=== PATIENT | male | born 1960 | race African-American/Black ===

== ENCOUNTER 2016-12-22 17:06 | Emergency (ER) | payer OTHER ==
[~2016-12-22] VITALS: Ht 177.8 cm; Wt 80.0 kg
[~2016-12-22 17:06] MED LIST: Folic Acid PO; KEPP500 PO; Multivitamins,Ther W-Minerals PO; PHEN100C4 PO; RISP0.5T PO
[2016-12-23 06:00] VITALS: BP 100/50
== END 2016-12-23 07:00 | disposition home or self-care (01) ==
LOC: ER 17:15
DX: F10.120 Alcohol abuse with intoxication, uncomplicated (principal); R56.9 Unspecified convulsions; Z79.899 Other long term (current) drug therapy
CPT/HCPCS: 99283; Z7610

== ENCOUNTER 2017-01-08 13:34 | Emergency (ER) | payer OTHER ==
[~2017-01-08] VITALS: Ht 195.6 cm; Wt 95.0 kg
[2017-01-08] MEDS ORDERED: ACETAMINOPHEN 500MG TABLET PO ONE (14:45)
[2017-01-08] MEDS ORDERED: PHENYTOIN SODIUM EXTENDED 100MG CAPSULE PO ONE (16:00)
[2017-01-08 20:31] VITALS: BP 120/77
== END 2017-01-08 20:34 | disposition home or self-care (01) ==
LOC: ER 14:34
DX: M79.671 Pain in right foot (principal); G40.909 Epilepsy, unspecified, not intractable, without status epilepticus
CPT/HCPCS: 36415; 73630; 80185; 99285

== ENCOUNTER 2017-01-17 16:57 | Emergency (ER) | payer OTHER ==
[~2017-01-17] VITALS: Ht 180.3 cm; Wt 90.0 kg
[2017-01-17] MEDS ORDERED: FOLIC ACID 1 MG, THIAMINE HCL 100 MG, MVI, ADULT NO.1 10 ML in DEXTROSE 5% WATER 1,000 ML IV ONE ×4 (18:15)
[2017-01-17 20:00] LABS: BASOPHILS % 1.2 % (0.0-2.0); DIFFERENTIAL COMMENT 0; EOSINOPHILS % 1.5 % (0.0-5.0); HEMATOCRIT. 35.1 % (42.0-52.0); HEMOGLOBIN. 12.1 g/dL (14.0-18.0); LYMPHOCYTES % 49.9 % (20.0-50.0); MEAN CORPUSCULAR HEMOGLOBIN 34.5 pg (28.0-32.0); MEAN CORPUSCULAR HGB CONC 34.3 g/dL (31.0-37.0); MEAN CORPUSCULAR VOLUME 100.5 fL (80.0-94.0); MEAN PLATELET VOLUME 7.3 fl (7.4-10.4); MONOCYTES % 5.7 % (2.0-8.0); NEUTROPHILS % 41.7 % (40.0-76.0); PLATELET 243 x1000/uL (130-400); RED CELL DISTRIBUTION WIDTH 14.9 % (11.6-14.6); WHITE BLOOD COUNT 3.2 x1000/uL (4.5-11.0)
[2017-01-17] MEDS ORDERED: FOLIC ACID 1 MG, THIAMINE HCL 100 MG, MVI, ADULT NO.1 10 ML in DEXTROSE 5% WATER 1,000 ML IV NR ×4 (20:00)
[2017-01-17 20:02] LABS: CHLORIDE 105 mEq/L (98-107); INDEX HEMOLYSI 1 (1-3); INDEX ICTERIC 1 (1-4); INDEX LIPEMIC 1 (1-3)
[2017-01-17 20:11] LABS: ALANINE AMINOTRANSFERASE 18 IU/L (13-61); ALBUMIN 3.7 g/dL (3.4-5.0); ANION GAP 16; CALCIUM 8.6 mg/dL (8.5-10.1); CARBON DIOXIDE 23 mEq/L (21-32); ETHANOL BLOOD 255 mg/dL; UREA NITROGEN BLOOD 9 mg/dL (7-21); eGFR > 60 mL/min (>60)
[2017-01-17 21:11] LABS: *AMPHETAMINES SCREEN URINE NEGATIVE (NEGATIVE); *BARBITURATES SCREEN URINE NEGATIVE (NEGATIVE); *BENZODIAZEPINES SCREEN URINE NEGATIVE (NEGATIVE); *COCAINE SCREEN URINE PRESUMTIVE POSITIVE (NEGATIVE); CANNABINOID URINE SCREEN NEGATIVE (NEGATIVE); ECSTASY MDMA SCREEN URINE NEGATIVE (NEGATIVE); METHADONE URINE SCREEN NEGATIVE (NEGATIVE); OPIATES URINE SCREEN NEGATIVE (NEGATIVE); PHENCYCLIDINE URINE SCREEN NEGATIVE (NEGATIVE)
[2017-01-18] MEDS ORDERED: LORAZEPAM 2MG/ML CPJ IV STA (06:15)
[2017-01-18] MEDS ORDERED: SODIUM CHLORIDE 0.9% 1,000 ML IV ONE (06:15)
[2017-01-18 06:51] LABS: BASOPHILS % 1.3 % (0.0-2.0); DIFFERENTIAL COMMENT 0; EOSINOPHILS % 1.5 % (0.0-5.0); HEMATOCRIT. 36.9 % (42.0-52.0); HEMOGLOBIN. 12.4 g/dL (14.0-18.0); LYMPHOCYTES % 35.1 % (20.0-50.0); MEAN CORPUSCULAR HEMOGLOBIN 34.2 pg (28.0-32.0); MEAN CORPUSCULAR HGB CONC 33.8 g/dL (31.0-37.0); MEAN CORPUSCULAR VOLUME 101.3 fL (80.0-94.0); MEAN PLATELET VOLUME 7.4 fl (7.4-10.4); NEUTROPHILS % 55.1 % (40.0-76.0); PLATELET 237 x1000/uL (130-400); RED BLOOD CELL COUNT 3.64 mill/uL (4.7-6.1); RED CELL DISTRIBUTION WIDTH 15.3 % (11.6-14.6); WHITE BLOOD COUNT 2.7 x1000/uL (4.5-11.0)
[2017-01-18 07:02] LABS: PROTHROMBIN TIME 10.6 sec
[2017-01-18 07:03] LABS: AMMONIA 34 uMol/L (<32); INDEX HEMOLYSI 1 (1-3)
[2017-01-18 07:06] LABS: ACETAMINOPHEN < 2 ug/mL (10-30); ALANINE AMINOTRANSFERASE 15 IU/L (13-61); ALBUMIN 3.8 g/dL (3.4-5.0); ANION GAP 14; CALCIUM 8.9 mg/dL (8.5-10.1); CARBON DIOXIDE 25 mEq/L (21-32); CHLORIDE 105 mEq/L (98-107); ETHANOL BLOOD < 10 mg/dL; INDEX HEMOLYSI 1 (1-3); INDEX ICTERIC 1 (1-4); INDEX LIPEMIC 1 (1-3); NT PRO B-TYPE NATRIURETIC PEP 34 pg/mL (5-125); TROPONIN I < 0.02 ng/mL (0.00-0.04); UREA NITROGEN BLOOD 7 mg/dL (7-21); eGFR > 60 mL/min (>60)
[2017-01-18 13:54] VITALS: BP 125/74
== END 2017-01-18 13:58 | disposition home or self-care (01) ==
LOC: ER 16:57
DX: F10.239 Alcohol dependence with withdrawal, unspecified (principal); Z79.899 Other long term (current) drug therapy; Y90.8 Blood alcohol level of 240 mg/100 ml or more
CPT/HCPCS: 36415; 70450; 71010; 80053; 80305; 80307; 80329; 82140; 83880; 84484; 85025; 85610; 93005; 96361; 96365; 96366; 96375; 99285; G0482; J2060; J3411; J3490; J7030; J7070; Z7610

== ENCOUNTER 2017-01-21 12:55 | Emergency (ER) | payer OTHER ==
[~2017-01-21] VITALS: Ht 195.6 cm; Wt 95.0 kg
[2017-01-21 13:00] VITALS: BP 101/58
== END 2017-01-21 17:24 | disposition left against medical advice (07) ==
LOC: ER 13:02
DX: Z53.21 Procedure and treatment not carried out due to patient leaving prior to being seen by health care provider (principal)

== ENCOUNTER 2017-01-22 20:14 | Emergency (ER) | payer OTHER ==
[~2017-01-22] VITALS: Ht 185.4 cm; Wt 86.0 kg
[2017-01-22 22:38] LABS: BASOPHILS % 0.8 % (0.0-2.0); DIFFERENTIAL COMMENT 0; HEMATOCRIT. 34.1 % (42.0-52.0); HEMOGLOBIN. 11.5 g/dL (14.0-18.0); LYMPHOCYTES % 26.9 % (20.0-50.0); MEAN CORPUSCULAR HEMOGLOBIN 34.1 pg (28.0-32.0); MEAN CORPUSCULAR HGB CONC 33.7 g/dL (31.0-37.0); MEAN CORPUSCULAR VOLUME 101.4 fL (80.0-94.0); MEAN PLATELET VOLUME 8.4 fl (7.4-10.4); MONOCYTES % 13.3 % (2.0-8.0); PLATELET 206 x1000/uL (130-400); RED BLOOD CELL COUNT 3.36 mill/uL (4.7-6.1); WHITE BLOOD COUNT 4.9 x1000/uL (4.5-11.0)
[2017-01-22 22:58] LABS: ALANINE AMINOTRANSFERASE 16 IU/L (13-61); ALBUMIN 3.8 g/dL (3.4-5.0); ANION GAP 15; CALCIUM 8.7 mg/dL (8.5-10.1); CARBON DIOXIDE 24 mEq/L (21-32); CHLORIDE 104 mEq/L (98-107); ETHANOL BLOOD 80 mg/dL; INDEX HEMOLYSI 2 (1-3); INDEX ICTERIC 1 (1-4); INDEX LIPEMIC 1 (1-3); UREA NITROGEN BLOOD 11 mg/dL (7-21); eGFR > 60 mL/min (>60)
[2017-01-22 23:00] LABS: PHENYTOIN < 0.4 ug/mL (10-20)
[2017-01-22] MEDS ORDERED: PHENYTOIN SODIUM 1,000 MG in SODIUM CHLORIDE 0.9% 100 ML IV ONE (23:30)
[2017-01-23] MEDS ORDERED: PHENYTOIN 100 MG/4 ML UDC NG ONE ×2 (02:00→02:15)
[2017-01-23 03:45] VITALS: BP 104/79
== END 2017-01-23 04:36 | disposition home or self-care (01) ==
LOC: ER 20:14
DX: F10.129 Alcohol abuse with intoxication, unspecified (principal); G40.909 Epilepsy, unspecified, not intractable, without status epilepticus; Y90.4 Blood alcohol level of 80-99 mg/100 ml; Z91.14 Patient's other noncompliance with medication regimen
CPT/HCPCS: 36415; 80053; 80185; 85025; 99284; C1893; G0482; Z7610; J1165; J7050

== ENCOUNTER 2017-02-19 10:51 | Emergency (ER) | payer OTHER ==
[~2017-02-19] VITALS: Ht 182.9 cm; Wt 85.0 kg
[2017-02-19] MEDS ORDERED: PHENYTOIN SODIUM EXTENDED 100MG CAPSULE PO ONE (13:30)
[2017-02-19] MEDS ORDERED: LEVETIRACETAM 500MG TABLET PO ONE (13:30)
[2017-02-19 14:55] LABS: BASOPHILS % 0.9 % (0.0-2.0); DIFFERENTIAL COMMENT 0; EOSINOPHILS % 0.6 % (0.0-5.0); HEMOGLOBIN. 13.5 g/dL (14.0-18.0); LYMPHOCYTES % 24.2 % (20.0-50.0); MEAN CORPUSCULAR HEMOGLOBIN 34.3 pg (28.0-32.0); MEAN CORPUSCULAR HGB CONC 33.8 g/dL (31.0-37.0); MEAN CORPUSCULAR VOLUME 101.4 fL (80.0-94.0); MEAN PLATELET VOLUME 8.2 fl (7.4-10.4); MONOCYTES % 10.6 % (2.0-8.0); NEUTROPHILS % 63.7 % (40.0-76.0); PLATELET 209 x1000/uL (130-400); RED BLOOD CELL COUNT 3.95 mill/uL (4.7-6.1); RED CELL DISTRIBUTION WIDTH 14.3 % (11.6-14.6); WHITE BLOOD COUNT 4.5 x1000/uL (4.5-11.0)
[2017-02-19 15:02] LABS: CHLORIDE 103 mEq/L (98-107); INDEX HEMOLYSI 1 (1-3); INDEX ICTERIC 1 (1-4); INDEX LIPEMIC 1 (1-3)
[2017-02-19 15:07] LABS: ALBUMIN 3.8 g/dL (3.4-5.0); ANION GAP 12; CALCIUM 9.5 mg/dL (8.5-10.1); CARBON DIOXIDE 26 mEq/L (21-32); ETHANOL BLOOD < 10 mg/dL; UREA NITROGEN BLOOD 7 mg/dL (7-21)
[2017-02-19 15:10] LABS: ALANINE AMINOTRANSFERASE 19 IU/L (13-61); eGFR > 60 mL/min (>60)
[2017-02-19 15:23] LABS: PHENYTOIN < 0.4 ug/mL (10-20)
[2017-02-19 17:45] VITALS: BP 140/68
== END 2017-02-19 18:31 | disposition home or self-care (01) ==
LOC: ER 12:41
DX: G40.909 Epilepsy, unspecified, not intractable, without status epilepticus (principal); F17.210 Nicotine dependence, cigarettes, uncomplicated; F10.21 Alcohol dependence, in remission; Z91.14 Patient's other noncompliance with medication regimen
CPT/HCPCS: 36415; 80053; 80185; 85025; 99284; G0482

== ENCOUNTER 2017-03-11 17:50 | Emergency (ER) | payer OTHER ==
[~2017-03-11] VITALS: Ht 188 cm; Wt 95.5 kg
[2017-03-11] MEDS ORDERED: SODIUM CHLORIDE 0.9% 1,000 ML IV ONE (18:07)
[2017-03-11 19:13] LABS: CARBON DIOXIDE 25 mEq/L (21-32); CHLORIDE 101 mEq/L (98-107); ETHANOL BLOOD 184 mg/dL
[2017-03-11 19:15] LABS: PHENYTOIN 0.4 ug/mL (10-20)
[2017-03-11] MEDS ORDERED: PHENYTOIN SODIUM 1,000 MG in SODIUM CHLORIDE 0.9% 100 ML IV ONE (19:30)
[2017-03-11 19:56] LABS: *AMPHETAMINES SCREEN URINE NEGATIVE (NEGATIVE); *BARBITURATES SCREEN URINE NEGATIVE (NEGATIVE); *BENZODIAZEPINES SCREEN URINE NEGATIVE (NEGATIVE); *COCAINE SCREEN URINE PRESUMTIVE POSITIVE (NEGATIVE); CANNABINOID URINE SCREEN NEGATIVE (NEGATIVE); METHADONE URINE SCREEN NEGATIVE (NEGATIVE); OPIATES URINE SCREEN NEGATIVE (NEGATIVE); PHENCYCLIDINE URINE SCREEN NEGATIVE (NEGATIVE)
[2017-03-12 00:10] VITALS: BP 132/87
== END 2017-03-12 00:47 | disposition home or self-care (01) ==
LOC: ER 17:50
DX: F10.129 Alcohol abuse with intoxication, unspecified (principal); F14.10 Cocaine abuse, uncomplicated; R56.9 Unspecified convulsions; Z91.19 Patient's noncompliance with other medical treatment and regimen; F17.200 Nicotine dependence, unspecified, uncomplicated; R32 Unspecified urinary incontinence
CPT/HCPCS: 36415; 80048; 80185; 80305; 83735; 96365; 99284; G0482; J1165; J7030; J7040; Z7610; J7050

== ENCOUNTER 2017-04-13 18:21 | Emergency (ER) | payer OTHER ==
[~2017-04-13] VITALS: Ht 172.7 cm; Wt 72.0 kg
[2017-04-13] MEDS ORDERED: LEVETIRACETAM 1,000 MG in SODIUM CHLORIDE 0.9% 100 ML IV ONE (19:30)
[2017-04-13 20:09] LABS: BASOPHILS % 0.8 % (0.0-2.0); EOSINOPHILS % 1.3 % (0.0-5.0); HEMATOCRIT. 34.1 % (42.0-52.0); HEMOGLOBIN. 12.1 g/dL (14.0-18.0); LYMPHOCYTES % 51.1 % (20.0-50.0); MEAN CORPUSCULAR HEMOGLOBIN 35.2 pg (28.0-32.0); MEAN CORPUSCULAR VOLUME 99.8 fL (80.0-94.0); MEAN PLATELET VOLUME 7.7 fl (7.4-10.4); NEUTROPHILS % 39.8 % (40.0-76.0); PLATELET 217 x1000/uL (130-400); RED BLOOD CELL COUNT 3.42 mill/uL (4.7-6.1); RED CELL DISTRIBUTION WIDTH 13.4 % (11.6-14.6)
[2017-04-13 20:11] LABS: CHLORIDE 104 mEq/L (98-107)
[2017-04-13 20:20] LABS: CARBON DIOXIDE 21 mEq/L (21-32); ETHANOL BLOOD 236 mg/dL
[2017-04-14 06:48] VITALS: BP 113/65
== END 2017-04-14 06:49 | disposition home or self-care (01) ==
LOC: ER 18:38
DX: F10.129 Alcohol abuse with intoxication, unspecified (principal); R56.9 Unspecified convulsions
CPT/HCPCS: 36415; 80053; 85025; 96365; 99284; G0482; J1953; J7030; J7050

== ENCOUNTER 2017-05-10 16:02 | Emergency (ER) | payer OTHER ==
[~2017-05-10] VITALS: Ht 185.4 cm; Wt 90.0 kg
[2017-05-10 16:07] VITALS: BP 107/63
== END 2017-05-11 00:20 | disposition left against medical advice (07) ==
LOC: ER 16:09
DX: F10.10 Alcohol abuse, uncomplicated (principal); Z53.21 Procedure and treatment not carried out due to patient leaving prior to being seen by health care provider

== ENCOUNTER 2017-05-11 13:34 | Emergency (ER) | payer OTHER ==
[~2017-05-11] VITALS: Ht 195.6 cm; Wt 93.0 kg
[2017-05-11] MEDS ORDERED: FOLIC ACID 1 MG, THIAMINE HCL 100 MG, MVI, ADULT NO.1 10 ML in DEXTROSE 5% WATER 1,000 ML IV ONE ×4 (14:45)
[2017-05-11 15:22] LABS: BASOPHILS % 0.8 % (0.0-2.0); EOSINOPHILS % 0.8 % (0.0-5.0); HEMATOCRIT. 37.1 % (42.0-52.0); HEMOGLOBIN. 12.4 g/dL (14.0-18.0); LYMPHOCYTES % 53.1 % (20.0-50.0); MEAN CORPUSCULAR HEMOGLOBIN 33.7 pg (28.0-32.0); MEAN CORPUSCULAR VOLUME 100.9 fL (80.0-94.0); MEAN PLATELET VOLUME 8.2 fl (7.4-10.4); NEUTROPHILS % 37.3 % (40.0-76.0); PLATELET 192 x1000/uL (130-400); RED BLOOD CELL COUNT 3.67 mill/uL (4.7-6.1); RED CELL DISTRIBUTION WIDTH 14.1 % (11.6-14.6)
[2017-05-11 15:33] LABS: CARBON DIOXIDE 25 mEq/L (21-32); CHLORIDE 103 mEq/L (98-107); ETHANOL BLOOD 285 mg/dL
[2017-05-11 16:19] LABS: CLARITY URINE CLEAR (CLEAR); COLOR URINE YELLOW (YELLOW); GLUCOSE URINE NEGATIVE (NEGATIVE); KETONES URINE NEGATIVE (NEGATIVE); LEUKOCYTE ESTERASE URINE 2+ (NEGATIVE); NITRITE URINE POSITIVE (NEGATIVE); OCCULT BLOOD URINE NEGATIVE (NEGATIVE); PROTEIN URINE NEGATIVE (NEGATIVE); SPECIFIC GRAVITY URINE 1.006 (1.005-1.030); UROBILINOGEN URINE 0.2 E.U./dL (0.2-1.0)
[2017-05-11 16:38] LABS: *AMPHETAMINES SCREEN URINE NEGATIVE (NEGATIVE); *BARBITURATES SCREEN URINE NEGATIVE (NEGATIVE); *BENZODIAZEPINES SCREEN URINE NEGATIVE (NEGATIVE); *COCAINE SCREEN URINE PRESUMTIVE POSITIVE (NEGATIVE); CANNABINOID URINE SCREEN NEGATIVE (NEGATIVE); METHADONE URINE SCREEN NEGATIVE (NEGATIVE); OPIATES URINE SCREEN NEGATIVE (NEGATIVE); PHENCYCLIDINE URINE SCREEN PRESUMTIVE POSITIVE (NEGATIVE)
[2017-05-11] MEDS ORDERED: CEFTRIAXONE 1 G PREMIX 50 ML IV SCH (18:45)
[2017-05-12 02:58] VITALS: BP 104/62
== END 2017-05-12 03:01 | disposition home or self-care (01) ==
LOC: ER 13:50
DX: T51.0X1A Toxic effect of ethanol, accidental (unintentional), initial encounter (principal); T40.991A Poisoning by other psychodysleptics [hallucinogens], accidental (unintentional), initial encounter; N39.0 Urinary tract infection, site not specified; T40.5X1A Poisoning by cocaine, accidental (unintentional), initial encounter; G92 Toxic encephalopathy; Y92.488 Other paved roadways as the place of occurrence of the external cause; G40.909 Epilepsy, unspecified, not intractable, without status epilepticus
CPT/HCPCS: 36415; 80053; 80305; 80307; 80329; 81001; 85025; 96365; 96366; 99285; G0482; J3411; J3490; J7070

== ENCOUNTER 2017-06-01 13:39 | Emergency (ER) | payer OTHER ==
[~2017-06-01] VITALS: Ht 182.9 cm; Wt 80.0 kg
[~2017-06-01 13:39] MED LIST changes: -RISP0.5T PO; +RISP05 PO
[2017-06-01] MEDS ORDERED: SODIUM CHLORIDE 0.9% 1,000 ML IV ONE (13:58)
[2017-06-01 14:36] LABS: CLARITY URINE CLEAR (CLEAR); COLOR URINE YELLOW (YELLOW); GLUCOSE URINE NEGATIVE (NEGATIVE); KETONES URINE NEGATIVE (NEGATIVE); LEUKOCYTE ESTERASE URINE 2+ (NEGATIVE); NITRITE URINE NEGATIVE (NEGATIVE); OCCULT BLOOD URINE NEGATIVE (NEGATIVE); PROTEIN URINE NEGATIVE (NEGATIVE); SPECIFIC GRAVITY URINE 1.007 (1.005-1.030); UROBILINOGEN URINE 0.2 E.U./dL (0.2-1.0)
[2017-06-01 15:10] LABS: CHLORIDE 107 mEq/L (98-107); PROTHROMBIN TIME 10.5 sec (9.4-11.6)
[2017-06-01 15:13] LABS: CARBON DIOXIDE 25 mEq/L (21-32)
[2017-06-01 15:18] LABS: BASOPHILS % 1.2 % (0.0-2.0); EOSINOPHILS % 0.6 % (0.0-5.0); HEMATOCRIT. 35.8 % (42.0-52.0); LYMPHOCYTES % 57.6 % (20.0-50.0); MEAN CORPUSCULAR VOLUME 101.2 fL (80.0-94.0); MONOCYTES % 5.7 % (2.0-8.0); NEUTROPHILS % 34.9 % (40.0-76.0); PLATELET 242 x1000/uL (130-400); RED BLOOD CELL COUNT 3.53 mill/uL (4.7-6.1)
[2017-06-01] MEDS ORDERED: CEPHALEXIN 500MG CAPSULE PO ONE (16:45)
[2017-06-01] MEDS ORDERED: LEVETIRACETAM 500MG TABLET PO ONE (16:45)
[2017-06-01] MEDS ORDERED: PHENYTOIN SODIUM EXTENDED 100MG CAPSULE PO ONE (16:45)
[2017-06-02 02:32] VITALS: BP 115/62
== END 2017-06-02 03:04 | disposition home or self-care (01) ==
LOC: ER 13:53
DX: F10.129 Alcohol abuse with intoxication, unspecified (principal); G40.909 Epilepsy, unspecified, not intractable, without status epilepticus; Y90.9 Presence of alcohol in blood, level not specified
CPT/HCPCS: 36415; 80053; 80185; 81001; 83605; 85025; 85610; 99284; Z7610; J7030; A4315

== ENCOUNTER 2017-06-05 14:54 | Emergency (ER) | payer OTHER ==
[~2017-06-05] VITALS: Ht 180.3 cm; Wt 80.0 kg
[2017-06-05 16:22] LABS: BASOPHILS % 1.2 % (0.0-2.0); EOSINOPHILS % 0.5 % (0.0-5.0); HEMOGLOBIN. 11.8 g/dL (14.0-18.0); MEAN CORPUSCULAR VOLUME 100.7 fL (80.0-94.0); MEAN PLATELET VOLUME 8.1 fl (7.4-10.4); MONOCYTES % 10.2 % (2.0-8.0); NEUTROPHILS % 40.1 % (40.0-76.0); PLATELET 224 x1000/uL (130-400); RED BLOOD CELL COUNT 3.48 mill/uL (4.7-6.1); RED CELL DISTRIBUTION WIDTH 14.5 % (11.6-14.6)
[2017-06-05 16:32] LABS: CARBON DIOXIDE 21 mEq/L (21-32); CHLORIDE 106 mEq/L (98-107); ETHANOL BLOOD 251 mg/dL
[2017-06-05 16:40] LABS: CLARITY URINE CLEAR (CLEAR); COLOR URINE YELLOW (YELLOW); GLUCOSE URINE NEGATIVE (NEGATIVE); KETONES URINE NEGATIVE (NEGATIVE); LEUKOCYTE ESTERASE URINE 2+ (NEGATIVE); NITRITE URINE POSITIVE (NEGATIVE); OCCULT BLOOD URINE NEGATIVE (NEGATIVE); PROTEIN URINE NEGATIVE (NEGATIVE); SPECIFIC GRAVITY URINE 1.008 (1.005-1.030); UROBILINOGEN URINE 0.2 E.U./dL (0.2-1.0)
[2017-06-05 16:50] LABS: *AMPHETAMINES SCREEN URINE NEGATIVE (NEGATIVE); *BARBITURATES SCREEN URINE NEGATIVE (NEGATIVE); *BENZODIAZEPINES SCREEN URINE NEGATIVE (NEGATIVE); *COCAINE SCREEN URINE NEGATIVE (NEGATIVE); CANNABINOID URINE SCREEN NEGATIVE (NEGATIVE); METHADONE URINE SCREEN NEGATIVE (NEGATIVE); OPIATES URINE SCREEN NEGATIVE (NEGATIVE); PHENCYCLIDINE URINE SCREEN NEGATIVE (NEGATIVE)
[2017-06-05] MEDS ORDERED: PHENYTOIN SODIUM EXTENDED 100MG CAPSULE PO NR (17:15)
[2017-06-05] MEDS ORDERED: CEFTRIAXONE 1 G PREMIX 50 ML IV ONE (19:00)
[2017-06-05] MEDS ORDERED: CEFTRIAXONE SODIUM 1 G/VIAL IM ONE (19:45)
[2017-06-05 20:37] VITALS: BP 104/68
== END 2017-06-05 20:39 | disposition home or self-care (01) ==
LOC: ER 14:56
DX: F10.129 Alcohol abuse with intoxication, unspecified (principal); N39.0 Urinary tract infection, site not specified; R56.9 Unspecified convulsions
CPT/HCPCS: 36415; 80053; 80185; 80305; 81001; 85025; 96372; 99284; G0482; J0696; Z7610

== ENCOUNTER 2017-07-17 15:32 | Emergency (ER) | payer OTHER ==
[~2017-07-17] VITALS: Ht 182.9 cm; Wt 90.0 kg
[2017-07-17 15:36] VITALS: BP 112/82
== END 2017-07-17 19:15 | disposition left against medical advice (07) ==
LOC: ER 15:32
DX: F10.120 Alcohol abuse with intoxication, uncomplicated (principal); Z53.21 Procedure and treatment not carried out due to patient leaving prior to being seen by health care provider

== ENCOUNTER 2017-07-27 18:05 | Emergency (ER) | payer OTHER ==
[~2017-07-27] VITALS: Ht 177.8 cm; Wt 79.0 kg
[2017-07-28 03:00] VITALS: BP 127/65
== END 2017-07-28 03:03 | disposition home or self-care (01) ==
LOC: ER 18:12
DX: F10.129 Alcohol abuse with intoxication, unspecified (principal); G40.909 Epilepsy, unspecified, not intractable, without status epilepticus; Y90.9 Presence of alcohol in blood, level not specified
CPT/HCPCS: 99283; Z7610

== ENCOUNTER 2017-08-06 18:48 | Emergency (ER) | payer OTHER ==
[~2017-08-06] VITALS: Ht 167.6 cm; Wt 60.0 kg
[2017-08-06 19:11] VITALS: BP 101/63
[2017-08-06 19:39] LABS: CLARITY URINE CLEAR (CLEAR); COLOR URINE YELLOW (YELLOW); GLUCOSE URINE NEGATIVE (NEGATIVE); KETONES URINE NEGATIVE (NEGATIVE); LEUKOCYTE ESTERASE URINE 2+ (NEGATIVE); NITRITE URINE NEGATIVE (NEGATIVE); OCCULT BLOOD URINE NEGATIVE (NEGATIVE); PROTEIN URINE NEGATIVE (NEGATIVE); SPECIFIC GRAVITY URINE 1.008 (1.005-1.030); UROBILINOGEN URINE 0.2 E.U./dL (0.2-1.0)
[2017-08-06 19:55] LABS: BASOPHILS % 0.8 % (0.0-2.0); EOSINOPHILS % 0.7 % (0.0-5.0); HEMATOCRIT. 35.2 % (42.0-52.0); LYMPHOCYTES % 49.3 % (20.0-50.0); MEAN CORPUSCULAR VOLUME 102.9 fL (80.0-94.0); MEAN PLATELET VOLUME 8.1 fl (7.4-10.4); MONOCYTES % 9.7 % (2.0-8.0); NEUTROPHILS % 39.5 % (40.0-76.0); PLATELET 218 x1000/uL (130-400); RED BLOOD CELL COUNT 3.42 mill/uL (4.7-6.1); RED CELL DISTRIBUTION WIDTH 14.3 % (11.6-14.6)
[2017-08-06 20:03] LABS: CHLORIDE 103 mEq/L (98-107)
[2017-08-06 20:05] LABS: CARBON DIOXIDE 28 mEq/L (21-32)
[2017-08-06 20:06] LABS: ETHANOL BLOOD 257 mg/dL
[2017-08-06 20:08] LABS: *AMPHETAMINES SCREEN URINE NEGATIVE (NEGATIVE); *BARBITURATES SCREEN URINE NEGATIVE (NEGATIVE); *BENZODIAZEPINES SCREEN URINE NEGATIVE (NEGATIVE); *COCAINE SCREEN URINE PRESUMTIVE POSITIVE (NEGATIVE); CANNABINOID URINE SCREEN NEGATIVE (NEGATIVE); METHADONE URINE SCREEN NEGATIVE (NEGATIVE); OPIATES URINE SCREEN NEGATIVE (NEGATIVE); PHENCYCLIDINE URINE SCREEN NEGATIVE (NEGATIVE)
== END 2017-08-07 00:48 | disposition home or self-care (01) ==
LOC: ER 18:57
DX: F10.129 Alcohol abuse with intoxication, unspecified (principal); F14.10 Cocaine abuse, uncomplicated
CPT/HCPCS: 36415; 70450; 71010; 80053; 80185; 80305; 81001; 85025; 87077; 87086; 87186; 99285; G0482; Z7610

== ENCOUNTER 2017-09-18 15:21 | Emergency (ER) | payer OTHER ==
[~2017-09-18] VITALS: Ht 180.3 cm; Wt 79.0 kg
[2017-09-18 19:10] LABS: BASOPHILS % 0.6 % (0.0-2.0); EOSINOPHILS % 0.7 % (0.0-5.0); HEMATOCRIT. 34.2 % (42.0-52.0); HEMOGLOBIN. 11.7 g/dL (14.0-18.0); LYMPHOCYTES % 27.9 % (20.0-50.0); MEAN CORPUSCULAR HEMOGLOBIN 35.1 pg (28.0-32.0); MEAN CORPUSCULAR VOLUME 102.6 fL (80.0-94.0); MEAN PLATELET VOLUME 8.1 fl (7.4-10.4); MONOCYTES % 8.3 % (2.0-8.0); NEUTROPHILS % 62.5 % (40.0-76.0); PLATELET 242 x1000/uL (130-400); RED BLOOD CELL COUNT 3.33 mill/uL (4.7-6.1); RED CELL DISTRIBUTION WIDTH 14.4 % (11.6-14.6)
[2017-09-18 19:17] LABS: CHLORIDE 105 mEq/L (98-107)
[2017-09-18 19:25] LABS: CARBON DIOXIDE 27 mEq/L (21-32); ETHANOL BLOOD < 10 mg/dL
[2017-09-18] MEDS ORDERED: PHENYTOIN SODIUM 1,000 MG in SODIUM CHLORIDE 0.9% 100 ML IV ONE (20:00)
[2017-09-18] MEDS ORDERED: PHENYTOIN SODIUM EXTENDED 100MG CAPSULE PO ONE (21:30)
[2017-09-18 21:47] VITALS: BP 112/52
== END 2017-09-18 22:10 | disposition home or self-care (01) ==
LOC: ER 15:21
DX: F10.129 Alcohol abuse with intoxication, unspecified (principal); G40.909 Epilepsy, unspecified, not intractable, without status epilepticus
CPT/HCPCS: 36415; 80053; 80185; 80307; 80329; 85025; 99284; G0482; J1165; Z7610; J7050

== ENCOUNTER 2017-11-01 14:47 | Emergency (ER) | payer OTHER ==
[~2017-11-01] VITALS: Ht 188 cm; Wt 96.0 kg
[2017-11-01] MEDS ORDERED: LEVETIRACETAM 500MG PREMIX 100 ML IV ONE (15:15)
[2017-11-01] MEDS ORDERED: IBUPROFEN 400MG TABLET PO ONE (15:30)
[2017-11-01] MEDS ORDERED: TETANUS, DIPHTHERIA, PERTUSSIS VAC/PF 0.5ML (>7YR OLD) IM ONE (15:30)
[2017-11-01 16:38] LABS: BASOPHILS % 0.8 % (0.0-2.0); HEMATOCRIT. 39.2 % (42.0-52.0); HEMOGLOBIN. 13.2 g/dL (14.0-18.0); LYMPHOCYTES % 25.3 % (20.0-50.0); MEAN CORPUSCULAR HEMOGLOBIN 34.8 pg (28.0-32.0); MEAN CORPUSCULAR VOLUME 103.2 fL (80.0-94.0); MEAN PLATELET VOLUME 8.7 fl (7.4-10.4); MONOCYTES % 11.3 % (2.0-8.0); NEUTROPHILS % 61.6 % (40.0-76.0); PLATELET 212 x1000/uL (130-400)
[2017-11-01 16:48] LABS: CHLORIDE 105 mEq/L (98-107); ETHANOL BLOOD < 10 mg/dL
[2017-11-01] MEDS ORDERED: PHENYTOIN SODIUM 1,000 MG in SODIUM CHLORIDE 0.9% 100 ML IV ONE (18:00)
[2017-11-02 01:30] VITALS: BP 103/61
== END 2017-11-02 02:30 | disposition home or self-care (01) ==
LOC: ER 14:47
DX: R56.9 Unspecified convulsions (principal); F17.200 Nicotine dependence, unspecified, uncomplicated; Z91.14 Patient's other noncompliance with medication regimen; Z79.899 Other long term (current) drug therapy
CPT/HCPCS: 36415; 73130; 73630; 80053; 80185; 85025; 90471; 90715; 96365; 96366; 96367; 99285; G0482; J1165; J1953; Z7610; J7050

== ENCOUNTER 2017-12-04 09:50 | Emergency (ER) | payer OTHER ==
[~2017-12-04] VITALS: Ht 185.4 cm; Wt 90.0 kg
[2017-12-04] MEDS ORDERED: SODIUM CHLORIDE 0.9% 1,000 ML IV ONE (10:42)
[2017-12-04 11:13] LABS: BASOPHILS % 0.5 % (0.0-2.0); EOSINOPHILS % 0.7 % (0.0-5.0); HEMATOCRIT. 39.8 % (42.0-52.0); HEMOGLOBIN. 13.8 g/dL (14.0-18.0); LYMPHOCYTES % 18.3 % (20.0-50.0); MEAN CORPUSCULAR HEMOGLOBIN 35.6 pg (28.0-32.0); MEAN CORPUSCULAR VOLUME 103.2 fL (80.0-94.0); MONOCYTES % 9.9 % (2.0-8.0); NEUTROPHILS % 70.6 % (40.0-76.0); PLATELET 200 x1000/uL (130-400); RED BLOOD CELL COUNT 3.86 mill/uL (4.7-6.1); RED CELL DISTRIBUTION WIDTH 14.9 % (11.6-14.6)
[2017-12-04 11:19] LABS: CHLORIDE 99 mEq/L (98-107)
[2017-12-04 11:24] LABS: ETHANOL BLOOD < 10 mg/dL
[2017-12-04 13:34] LABS: CLARITY URINE CLOUDY (CLEAR); COLOR URINE YELLOW (YELLOW); KETONES URINE NEGATIVE (NEGATIVE); LEUKOCYTE ESTERASE URINE 2+ (NEGATIVE); NITRITE URINE POSITIVE (NEGATIVE); OCCULT BLOOD URINE TRACE (NEGATIVE); PH URINE 5.5 (4.5-8.0); PROTEIN URINE NEGATIVE (NEGATIVE); SPECIFIC GRAVITY URINE 1.023 (1.005-1.030); UROBILINOGEN URINE 0.2 E.U./dL (0.2-1.0)
[2017-12-04] MEDS ORDERED: PHENYTOIN SODIUM 1,000 MG in SODIUM CHLORIDE 0.9% 100 ML IV ONE (13:45)
[2017-12-04] MEDS ORDERED: LEVETIRACETAM 500MG TABLET PO ONE (13:45)
[2017-12-04] MEDS ORDERED: PHENYTOIN SODIUM 1,000 MG in SODIUM CHLORIDE 0.9% 100 ML IV SCH (14:45)
[2017-12-04 14:50] LABS: *AMPHETAMINES SCREEN URINE NEGATIVE (NEGATIVE); *BARBITURATES SCREEN URINE NEGATIVE (NEGATIVE); *BENZODIAZEPINES SCREEN URINE NEGATIVE (NEGATIVE); *COCAINE SCREEN URINE PRESUMTIVE POSITIVE (NEGATIVE); CANNABINOID URINE SCREEN NEGATIVE (NEGATIVE); METHADONE URINE SCREEN NEGATIVE (NEGATIVE); OPIATES URINE SCREEN NEGATIVE (NEGATIVE); PHENCYCLIDINE URINE SCREEN NEGATIVE (NEGATIVE)
[2017-12-04] MEDS ORDERED: CEFTRIAXONE 1 G PREMIX 50 ML IV ONE (15:00)
[2017-12-04] MEDS ORDERED: DEXTROSE 50% WATER 50ML SYRINGE IV ONE (15:00)
[2017-12-04 19:57] VITALS: BP 101/51
== END 2017-12-04 20:14 | disposition home or self-care (01) ==
LOC: ER 10:25
DX: N39.0 Urinary tract infection, site not specified (principal); E16.2 Hypoglycemia, unspecified; F14.10 Cocaine abuse, uncomplicated; R89.2 Abnormal level of other drugs, medicaments and biological substances in specimens from other organs, systems and tissues; F10.229 Alcohol dependence with intoxication, unspecified
CPT/HCPCS: 36415; 70450; 71045; 80053; 80185; 80305; 81003; 82962; 83690; 85025; 85610; 87077; 87086; 87186; 96361; 96365; 96366; 96368; 96375; 99285; G0482; J0696; J1165; J7030; Z7610; J7050

== ENCOUNTER 2017-12-07 19:51 | Emergency (ER) | payer OTHER ==
[~2017-12-07] VITALS: Ht 182.9 cm; Wt 91.0 kg
[2017-12-07 21:26] LABS: BASOPHILS % 0.5 % (0.0-2.0); HEMATOCRIT. 35.7 % (42.0-52.0); HEMOGLOBIN. 12.7 g/dL (14.0-18.0); LYMPHOCYTES % 30.4 % (20.0-50.0); MEAN CORPUSCULAR HEMOGLOBIN 37.1 pg (28.0-32.0); MEAN CORPUSCULAR VOLUME 104.6 fL (80.0-94.0); MEAN PLATELET VOLUME 8.9 fl (7.4-10.4); MONOCYTES % 10.7 % (2.0-8.0); NEUTROPHILS % 57.4 % (40.0-76.0); PLATELET 181 x1000/uL (130-400); RED BLOOD CELL COUNT 3.41 mill/uL (4.7-6.1); RED CELL DISTRIBUTION WIDTH 15.4 % (11.6-14.6)
[2017-12-07 21:27] LABS: CHLORIDE 102 mEq/L (98-107)
[2017-12-07 21:33] LABS: ETHANOL BLOOD 184 mg/dL
[2017-12-07 22:18] LABS: CLARITY URINE CLEAR (CLEAR); COLOR URINE YELLOW (YELLOW); KETONES URINE TRACE (NEGATIVE); LEUKOCYTE ESTERASE URINE TRACE (NEGATIVE); NITRITE URINE NEGATIVE (NEGATIVE); OCCULT BLOOD URINE NEGATIVE (NEGATIVE); PH URINE 5.5 (4.5-8.0); PROTEIN URINE NEGATIVE (NEGATIVE); SPECIFIC GRAVITY URINE 1.016 (1.005-1.030); UROBILINOGEN URINE 0.2 E.U./dL (0.2-1.0)
[2017-12-07 22:28] LABS: *AMPHETAMINES SCREEN URINE NEGATIVE (NEGATIVE); *BARBITURATES SCREEN URINE NEGATIVE (NEGATIVE); *BENZODIAZEPINES SCREEN URINE NEGATIVE (NEGATIVE); *COCAINE SCREEN URINE PRESUMTIVE POSITIVE (NEGATIVE); CANNABINOID URINE SCREEN NEGATIVE (NEGATIVE); METHADONE URINE SCREEN NEGATIVE (NEGATIVE); OPIATES URINE SCREEN NEGATIVE (NEGATIVE); PHENCYCLIDINE URINE SCREEN NEGATIVE (NEGATIVE)
[2017-12-08 07:45] VITALS: BP 129/70
== END 2017-12-08 08:03 | disposition home or self-care (01) ==
LOC: ER 19:51
DX: G40.909 Epilepsy, unspecified, not intractable, without status epilepticus (principal); T40.5X1A Poisoning by cocaine, accidental (unintentional), initial encounter; R41.82 Altered mental status, unspecified; T51.0X1A Toxic effect of ethanol, accidental (unintentional), initial encounter; F17.200 Nicotine dependence, unspecified, uncomplicated; F10.20 Alcohol dependence, uncomplicated
CPT/HCPCS: 36415; 70450; 80053; 80185; 80305; 81003; 85025; 85610; 99285; G0482

== ENCOUNTER 2018-01-30 13:08 | Emergency (ER) | payer OTHER ==
[~2018-01-30] VITALS: Ht 180.3 cm; Wt 90.0 kg
[2018-01-30 13:09] VITALS: BP 96/52
[2018-01-30] MEDS ORDERED: SODIUM CHLORIDE 0.9% 1,000 ML IV ONE (15:02)
[2018-01-30] MEDS ORDERED: CYANOCOBALAMIN 1000MCG/ML VIAL IM ONE (15:15)
== END 2018-01-30 15:20 | disposition left against medical advice (07) ==
LOC: ER 13:13
DX: F10.129 Alcohol abuse with intoxication, unspecified (principal); R56.9 Unspecified convulsions; F14.10 Cocaine abuse, uncomplicated; Y90.9 Presence of alcohol in blood, level not specified
CPT/HCPCS: 96360; 99284; J3420; J7030

== ENCOUNTER 2018-02-06 08:40 | Emergency (ER) | payer OTHER ==
[~2018-02-06] VITALS: Ht 172.7 cm; Wt 70.0 kg
[2018-02-06] MEDS ORDERED: SODIUM CHLORIDE 0.9% 1,000 ML IV ONE (09:13)
[2018-02-06] MEDS ORDERED: LORAZEPAM 2MG/ML CPJ IV ONE (09:15)
[2018-02-06] MEDS ORDERED: LORAZEPAM 2MG/ML CPJ IM ONE (09:15)
[2018-02-06] MEDS ORDERED: HALOPERIDOL LACTATE 5MG/ML VIAL IM ONE (09:15)
[2018-02-06] MEDS ORDERED: LEVETIRACETAM 500MG PREMIX 100 ML IV ONE (09:15)
[2018-02-06 10:39] LABS: BASOPHILS % 0.8 % (0.0-2.0); EOSINOPHILS % 0.8 % (0.0-5.0); HEMATOCRIT. 41.3 % (42.0-52.0); HEMOGLOBIN. 13.8 g/dL (14.0-18.0); LYMPHOCYTES % 33.5 % (20.0-50.0); MEAN CORPUSCULAR HEMOGLOBIN 35.2 pg (28.0-32.0); MEAN CORPUSCULAR VOLUME 105.3 fL (80.0-94.0); MONOCYTES % 10.3 % (2.0-8.0); NEUTROPHILS % 54.6 % (40.0-76.0); PLATELET 249 x1000/uL (130-400); RED BLOOD CELL COUNT 3.92 mill/uL (4.7-6.1)
[2018-02-06 10:45] LABS: CHLORIDE 105 mEq/L (98-107)
[2018-02-06 10:49] LABS: ETHANOL BLOOD 19 mg/dL
[2018-02-06 10:57] LABS: *AMPHETAMINES SCREEN URINE NEGATIVE (NEGATIVE); *BARBITURATES SCREEN URINE NEGATIVE (NEGATIVE); *BENZODIAZEPINES SCREEN URINE NEGATIVE (NEGATIVE); *COCAINE SCREEN URINE PRESUMTIVE POSITIVE (NEGATIVE)
[2018-02-06 10:58] LABS: CANNABINOID URINE SCREEN PRESUMTIVE POSITIVE (NEGATIVE); METHADONE URINE SCREEN NEGATIVE (NEGATIVE); OPIATES URINE SCREEN NEGATIVE (NEGATIVE); PHENCYCLIDINE URINE SCREEN NEGATIVE (NEGATIVE)
[2018-02-06] MEDS ORDERED: LEVETIRACETAM 500MG/5ML CUP PO ONE (11:30)
[2018-02-06] MEDS ORDERED: PHENYTOIN SODIUM EXTENDED 100MG CAPSULE PO ONE (11:30)
[2018-02-06] MEDS ORDERED: PHENYTOIN SODIUM 1,000 MG in SODIUM CHLORIDE 0.9% 100 ML IV ONE (13:15)
[2018-02-06 14:57] VITALS: BP 140/80
== END 2018-02-06 15:20 | disposition home or self-care (01) ==
LOC: ER 08:49
DX: R56.9 Unspecified convulsions (principal); F10.229 Alcohol dependence with intoxication, unspecified; R32 Unspecified urinary incontinence; F12.929 Cannabis use, unspecified with intoxication, unspecified; F14.10 Cocaine abuse, uncomplicated; R89.2 Abnormal level of other drugs, medicaments and biological substances in specimens from other organs, systems and tissues; Z86.73 Personal history of transient ischemic attack (TIA), and cerebral infarction without residual deficits; W18.30XA Fall on same level, unspecified, initial encounter; Y93.89 Activity, other specified; Y99.8 Other external cause status; Y92.89 Other specified places as the place of occurrence of the external cause; Y90.0 Blood alcohol level of less than 20 mg/100 ml
CPT/HCPCS: 36415; 70450; 80053; 80185; 80305; 82962; 85025; 96365; 96367; 96375; 99285; G0482; J1165; J1630; J1953; J2060; J7030; Z7610; J7050; A4315

== ENCOUNTER 2018-03-18 12:52 | Emergency (ER) | payer OTHER ==
[~2018-03-18] VITALS: Ht 177.8 cm; Wt 85.0 kg
[2018-03-18 12:56] VITALS: BP 136/80
== END 2018-03-18 13:25 | disposition left against medical advice (07) ==
LOC: ER 12:52
DX: F10.229 Alcohol dependence with intoxication, unspecified (principal); G40.909 Epilepsy, unspecified, not intractable, without status epilepticus
CPT/HCPCS: 99283

== ENCOUNTER 2018-05-05 16:12 | Emergency (ER) | payer OTHER ==
[~2018-05-05] VITALS: Ht 185.4 cm; Wt 91.0 kg
[2018-05-05 16:46] VITALS: BP 121/86
== END 2018-05-05 17:19 | disposition left against medical advice (07) ==
LOC: ER 16:44
DX: Z53.21 Procedure and treatment not carried out due to patient leaving prior to being seen by health care provider (principal)

== ENCOUNTER 2018-05-22 22:11 | Emergency (ER) | payer OTHER ==
[~2018-05-22] VITALS: Ht 167.6 cm; Wt 63.0 kg
[2018-05-23] MEDS ORDERED: LEVETIRACETAM 500MG PREMIX 100 ML IV ONE (02:30)
[2018-05-23 02:57] LABS: HEMATOCRIT. 42.4 % (42.0-52.0); HEMOGLOBIN. 14.9 g/dL (14.0-18.0); MEAN CORPUSCULAR HEMOGLOBIN 35.3 pg (28.0-32.0); MEAN CORPUSCULAR VOLUME 100.5 fL (80.0-94.0); MEAN PLATELET VOLUME 7.8 fl (7.4-10.4); PLATELET 247 x1000/uL (130-400); RED BLOOD CELL COUNT 4.22 mill/uL (4.7-6.1); RED CELL DISTRIBUTION WIDTH 13.4 % (11.6-14.6)
[2018-05-23 02:59] LABS: CHLORIDE 86 mEq/L (98-107)
[2018-05-23 03:06] LABS: ETHANOL BLOOD 149 mg/dL
[2018-05-23 03:31] LABS: CARBAMAZEPINE < 0.5 ug/mL (4-12); PHENOBARBITAL < 2.1 ug/mL (15.0-40.0); VALPROIC ACID < 3.0 ug/mL (50-100)
[2018-05-23] MEDS ORDERED: POTASSIUM CHLORIDE 20MEQ TABLET SR PO ONE (04:00)
[2018-05-23] MEDS ORDERED: PHENYTOIN SODIUM 100MG/2ML VIAL IV ONE (04:15)
[2018-05-23 04:17] LABS: *AMPHETAMINES SCREEN URINE NEGATIVE (NEGATIVE); *BARBITURATES SCREEN URINE NEGATIVE (NEGATIVE); *BENZODIAZEPINES SCREEN URINE NEGATIVE (NEGATIVE)
[2018-05-23 04:18] LABS: *COCAINE SCREEN URINE NEGATIVE (NEGATIVE); CANNABINOID URINE SCREEN PRESUMTIVE POSITIVE (NEGATIVE); METHADONE URINE SCREEN NEGATIVE (NEGATIVE); OPIATES URINE SCREEN NEGATIVE (NEGATIVE); PHENCYCLIDINE URINE SCREEN NEGATIVE (NEGATIVE)
[2018-05-23 05:32] LABS: ATYPICAL LYMPHOCYTES 3; PLATELET ESTIMATE NORMAL
[2018-05-23] MEDS ORDERED: LEVETIRACETAM 250MG TABLET PO ONE (05:45)
[2018-05-23] MEDS ORDERED: PHENYTOIN SODIUM EXTENDED 100MG CAPSULE PO ONE (05:45)
[2018-05-23 06:00] VITALS: BP 118/68
== END 2018-05-23 06:51 | disposition home or self-care (01) ==
LOC: ER 22:11
DX: F10.229 Alcohol dependence with intoxication, unspecified (principal); G40.909 Epilepsy, unspecified, not intractable, without status epilepticus; Y90.6 Blood alcohol level of 120-199 mg/100 ml
CPT/HCPCS: 36415; 70450; 80053; 80156; 80165; 80184; 80185; 80305; 85025; 99285; G0482

== ENCOUNTER 2018-07-28 23:06 | Emergency (ER) | payer OTHER ==
[~2018-07-28] VITALS: Ht 165.1 cm; Wt 72.0 kg
[2018-07-29] MEDS ORDERED: PHENYTOIN SODIUM EXTENDED 100MG CAPSULE PO ONE (00:15)
[2018-07-29 04:18] VITALS: BP 104/64
== END 2018-07-29 04:22 | disposition home or self-care (01) ==
LOC: ER 23:06 → EDUNIT# 23:06 → ER 07-29 04:22
DX: R56.9 Unspecified convulsions (principal); F17.200 Nicotine dependence, unspecified, uncomplicated; F10.20 Alcohol dependence, uncomplicated; Y90.9 Presence of alcohol in blood, level not specified; Z91.14 Patient's other noncompliance with medication regimen
CPT/HCPCS: 99283

== ENCOUNTER 2018-08-03 17:23 | Emergency (ER) | payer OTHER ==
[~2018-08-03] VITALS: Ht 185.4 cm; Wt 91.0 kg
[2018-08-03 20:22] LABS: BASOPHILS % 0.7 % (0.0-2.0); EOSINOPHILS % 0.6 % (0.0-5.0); HEMOGLOBIN. 11.5 g/dL (14.0-18.0); LYMPHOCYTES % 45.5 % (20.0-50.0); MEAN CORPUSCULAR HEMOGLOBIN 37.3 pg (28.0-32.0); MEAN CORPUSCULAR VOLUME 107.2 fL (80.0-94.0); MEAN PLATELET VOLUME 7.8 fl (7.4-10.4); MONOCYTES % 6.8 % (2.0-8.0); NEUTROPHILS % 46.4 % (40.0-76.0); PLATELET 276 x1000/uL (130-400); RED BLOOD CELL COUNT 3.08 mill/uL (4.7-6.1); RED CELL DISTRIBUTION WIDTH 16.1 % (11.6-14.6)
[2018-08-03 20:29] LABS: CHLORIDE 104 mEq/L (98-107)
[2018-08-03] MEDS ORDERED: PHENYTOIN SODIUM EXTENDED 100MG CAPSULE PO ONE (21:00)
[2018-08-03 23:30] VITALS: BP 101/60
== END 2018-08-04 04:51 | disposition home or self-care (01) ==
LOC: ER 17:23
DX: G40.909 Epilepsy, unspecified, not intractable, without status epilepticus (principal)
CPT/HCPCS: 36415; 80185; 99284

== ENCOUNTER 2018-09-25 15:02 | Emergency (ER) | payer OTHER ==
[~2018-09-25] VITALS: Ht 180.3 cm; Wt 85.0 kg
[2018-09-25] MEDS ORDERED: SODIUM CHLORIDE 0.9% 1,000 ML IV ONE (15:50)
[2018-09-25] MEDS ORDERED: CLINDAMYCIN 600 MG in DEXTROSE 5% WATER 50 ML IV ONE (17:00)
[2018-09-25 17:04] LABS: CLARITY URINE CLEAR (CLEAR); COLOR URINE YELLOW (YELLOW); KETONES URINE TRACE (NEGATIVE); LEUKOCYTE ESTERASE URINE 2+ (NEGATIVE); NITRITE URINE POSITIVE (NEGATIVE); OCCULT BLOOD URINE NEGATIVE (NEGATIVE); PH URINE 5.5 (4.5-8.0); PROTEIN URINE NEGATIVE (NEGATIVE); SPECIFIC GRAVITY URINE 1.016 (1.005-1.030); UROBILINOGEN URINE 0.2 E.U./dL (0.2-1.0)
[2018-09-25] MEDS ORDERED: CEFTRIAXONE 1 G PREMIX 50 ML IV ONE (17:15)
[2018-09-25] MEDS ORDERED: VANCOMYCIN 1 G PREMIX 200 ML IV SCH (17:15)
[2018-09-25 17:19] LABS: *AMPHETAMINES SCREEN URINE NEGATIVE (NEGATIVE); *BARBITURATES SCREEN URINE NEGATIVE (NEGATIVE); *BENZODIAZEPINES SCREEN URINE NEGATIVE (NEGATIVE); *COCAINE SCREEN URINE PRESUMTIVE POSITIVE (NEGATIVE); METHADONE URINE SCREEN NEGATIVE (NEGATIVE); OPIATES URINE SCREEN NEGATIVE (NEGATIVE); PHENCYCLIDINE URINE SCREEN NEGATIVE (NEGATIVE)
[2018-09-25 17:20] LABS: CANNABINOID URINE SCREEN NEGATIVE (NEGATIVE)
[2018-09-25] MEDS ORDERED: ONDANSETRON HCL 4MG/2ML INJ IV PRN (18:00)
[2018-09-25] MEDS ORDERED: ACETAMINOPHEN 325MG TABLET PO PRN (18:00)
[2018-09-25] MEDS ORDERED: FOLIC ACID 1 MG, THIAMINE HCL 100 MG, MVI, ADULT NO.1 10 ML in DEXTROSE 5% WATER 1,000 ML IV ONE ×4 (18:00)
[2018-09-25] MEDS ORDERED: DOCUSATE SODIUM 100MG CAPSULE PO PRN (18:00)
[2018-09-25] MEDS ORDERED: MVI, ADULT NO.1 10 ML, FOLIC ACID 1 MG, THIAMINE HCL 100 MG in SODIUM CHLORIDE 0.9% 1,0... IV SCH ×4 (18:00)
[2018-09-25] MEDS ORDERED: HYDROCODONE/ACETAMINOPHEN 5/325MG TABLET PO PRN (18:00)
[2018-09-25] MEDS ORDERED: IPRATROPIUM/ALBUTEROL 0.5-3(2.5)MG/3ML NEB INH PRN (18:00)
[2018-09-25] MEDS ORDERED: MAGNESIUM/ALUMINUM HYDROXIDE/SIMETHICONE 30ML UDC PO PRN (18:00)
[2018-09-25] MEDS ORDERED: CLONIDINE 0.1MG TABLET PO PRN (18:00)
[2018-09-25] MEDS ORDERED: PIPERACILLIN/TAZ 3.375G PREMIX 50 ML IV SCH (18:00)
[2018-09-25 19:00] LABS: BASOPHILS % 1.1 % (0.0-2.0); EOSINOPHILS % 1.4 % (0.0-5.0); HEMATOCRIT. 37.6 % (42.0-52.0); HEMOGLOBIN. 12.6 g/dL (14.0-18.0); LYMPHOCYTES % 29.7 % (20.0-50.0); MEAN CORPUSCULAR HEMOGLOBIN 35.9 pg (28.0-32.0); MEAN PLATELET VOLUME 8.5 fl (7.4-10.4); MONOCYTES % 8.2 % (2.0-8.0); NEUTROPHILS % 59.6 % (40.0-76.0); PLATELET 331 x1000/uL (130-400); RED BLOOD CELL COUNT 3.51 mill/uL (4.7-6.1); RED CELL DISTRIBUTION WIDTH 14.1 % (11.6-14.6)
[2018-09-25 19:08] LABS: CHLORIDE 106 mEq/L (98-107)
[2018-09-25 19:14] LABS: ETHANOL BLOOD < 10 mg/dL
[2018-09-25 19:15] LABS: C REACTIVE PROTEIN QUANT 2.5 mg/L (0.0-3.0); PHOSPHORUS 4.6 mg/dL (2.5-4.9)
[2018-09-25 20:12] LABS: PROTHROMBIN TIME 9.9 sec (9.1-11.1)
[2018-09-26] MEDS ORDERED: FOLIC ACID 1 MG, THIAMINE HCL 100 MG, MVI, ADULT NO.1 10 ML in DEXTROSE 5% WATER 1,000 ML IV ONE ×4 (03:58)
[2018-09-26 10:05] VITALS: BP 108/65
[2018-09-27] MEDS ORDERED: CHLORDIAZEPOXIDE 25MG CAPSULE PO SCH (06:00)
[2018-09-27 13:09] LABS: HIV SCREEN 4G Non Reactive (Non Reactive)
== END 2018-09-26 10:12 | disposition left against medical advice (07) ==
LOC: ER 15:02 → EDBEDREQTM 17:43 → EDBEDREQ 17:43 → CANRESERV 19:44 → ENRESERV 19:44 → EDBEDREQSVC 20:25 → CANBEDREQ 09-26 01:40 → ER 09-26 10:12 → CANRESERV 09-26 10:12 → ENRESERV 09-26 10:12 → CANBEDREQ 09-26 12:21
DX: L03.113 Cellulitis of right upper limb (principal); N39.0 Urinary tract infection, site not specified; F10.229 Alcohol dependence with intoxication, unspecified; Z79.899 Other long term (current) drug therapy; Y90.9 Presence of alcohol in blood, level not specified
CPT/HCPCS: 36415; 70450; 73110; 73130; 80053; 80076; 80305; 81003; 82140; 82962; 83605; 83690; 83735; 84100; 84145; 85025; 85610; 85651; 86140; 87040; 87077; 87186; 87389; 93005; 96361; 96365; 96366; 96368; 99284; G0482; J0696; J3370; J3411; J3490; J7030; J7060

== ENCOUNTER 2018-09-26 12:20 | Emergency (ER) | payer OTHER ==
[~2018-09-26] VITALS: Ht 175.3 cm; Wt 70.0 kg
[2018-09-26 12:21] VITALS: BP 100/64
== END 2018-09-26 13:58 | disposition left against medical advice (07) ==
LOC: ER 12:30
DX: L03.113 Cellulitis of right upper limb (principal); N39.0 Urinary tract infection, site not specified; R56.9 Unspecified convulsions; F10.229 Alcohol dependence with intoxication, unspecified; Y90.9 Presence of alcohol in blood, level not specified; Z79.899 Other long term (current) drug therapy
CPT/HCPCS: 99283

== ENCOUNTER 2018-10-18 09:01 | Emergency (ER) | payer OTHER ==
[~2018-10-18] VITALS: Ht 195.6 cm; Wt 93.0 kg
[2018-10-18 09:12] VITALS: BP 126/89
== END 2018-10-18 11:06 | disposition home or self-care (01) ==
LOC: ER 11:05
DX: R56.9 Unspecified convulsions (principal); F17.200 Nicotine dependence, unspecified, uncomplicated; Z79.899 Other long term (current) drug therapy
CPT/HCPCS: 99283

== ENCOUNTER 2018-10-18 12:08 | Emergency (ER) | payer OTHER ==
[~2018-10-18] VITALS: Ht 182.9 cm; Wt 90.0 kg
[2018-10-18 12:59] VITALS: BP 105/73
[2018-10-18] MEDS ORDERED: BACITRACIN ZINC OINT UDPKT TOP ONE (13:00)
== END 2018-10-18 13:00 | disposition home or self-care (01) ==
LOC: ER 12:08
DX: S00.81XA Abrasion of other part of head, initial encounter (principal); Y04.2XXA Assault by strike against or bumped into by another person, initial encounter; Y93.89 Activity, other specified; Y92.89 Other specified places as the place of occurrence of the external cause; Y99.8 Other external cause status; Z79.899 Other long term (current) drug therapy
CPT/HCPCS: 99283

== ENCOUNTER 2018-10-18 14:29 | Emergency (ER) | payer OTHER ==
[~2018-10-18] VITALS: Ht 182.9 cm; Wt 90.0 kg
[2018-10-18 14:40] VITALS: BP 120/60
[2018-10-18] MEDS ORDERED: TETANUS, DIPHTHERIA, PERTUSSIS VAC/PF 0.5ML (>7YR OLD) IM ONE (15:30)
[2018-10-18 17:35] LABS: CLARITY URINE CLOUDY (CLEAR); COLOR URINE YELLOW (YELLOW); KETONES URINE NEGATIVE (NEGATIVE); LEUKOCYTE ESTERASE URINE 2+ (NEGATIVE); NITRITE URINE NEGATIVE (NEGATIVE); OCCULT BLOOD URINE NEGATIVE (NEGATIVE); PH URINE 6.5 (4.5-8.0); PROTEIN URINE NEGATIVE (NEGATIVE); SPECIFIC GRAVITY URINE 1.017 (1.005-1.030)
[2018-10-18 17:47] LABS: *AMPHETAMINES SCREEN URINE NEGATIVE (NEGATIVE)
[2018-10-18 17:48] LABS: *BARBITURATES SCREEN URINE NEGATIVE (NEGATIVE); *BENZODIAZEPINES SCREEN URINE NEGATIVE (NEGATIVE); *COCAINE SCREEN URINE PRESUMTIVE POSITIVE (NEGATIVE); METHADONE URINE SCREEN NEGATIVE (NEGATIVE); OPIATES URINE SCREEN NEGATIVE (NEGATIVE); PHENCYCLIDINE URINE SCREEN NEGATIVE (NEGATIVE)
[2018-10-18 17:49] LABS: CANNABINOID URINE SCREEN NEGATIVE (NEGATIVE)
== END 2018-10-18 15:45 | disposition left against medical advice (07) ==
LOC: ER 14:35
DX: G93.40 Encephalopathy, unspecified (principal); F10.229 Alcohol dependence with intoxication, unspecified; Y90.9 Presence of alcohol in blood, level not specified; S09.8XXA Other specified injuries of head, initial encounter; F17.200 Nicotine dependence, unspecified, uncomplicated; X58.XXXA Exposure to other specified factors, initial encounter; Y93.89 Activity, other specified; Y92.89 Other specified places as the place of occurrence of the external cause; Y99.8 Other external cause status; Z79.899 Other long term (current) drug therapy
CPT/HCPCS: 80305; 82962; 90715; 99283

== ENCOUNTER 2018-11-08 07:54 | Emergency (ER) | payer OTHER ==
[~2018-11-08] VITALS: Ht 195.6 cm; Wt 92.0 kg
[2018-11-08] MEDS ORDERED: PHENYTOIN SODIUM 1,000 MG in SODIUM CHLORIDE 0.9% 100 ML IV ONE (08:45)
[2018-11-08] MEDS ORDERED: LEVETIRACETAM 1000MG/100ML 100 ML IV ONE (08:45)
[2018-11-08 09:47] LABS: EOSINOPHILS % 1.7 % (0.0-5.0); HEMATOCRIT. 38.6 % (42.0-52.0); HEMOGLOBIN. 13.2 g/dL (14.0-18.0); LYMPHOCYTES % 32.6 % (20.0-50.0); MEAN CORPUSCULAR HEMOGLOBIN 35.2 pg (28.0-32.0); MEAN CORPUSCULAR VOLUME 102.8 fL (80.0-94.0); MEAN PLATELET VOLUME 8.6 fl (7.4-10.4); MONOCYTES % 8.3 % (2.0-8.0); NEUTROPHILS % 56.4 % (40.0-76.0); PLATELET 300 x1000/uL (130-400); RED BLOOD CELL COUNT 3.76 mill/uL (4.7-6.1); RED CELL DISTRIBUTION WIDTH 13.4 % (11.6-14.6)
[2018-11-08 09:48] LABS: CHLORIDE 102 mEq/L (98-107)
[2018-11-08 09:52] LABS: ETHANOL BLOOD 14 mg/dL
[2018-11-08] MEDS ORDERED: SODIUM CHLORIDE 0.9% 1,000 ML IV ONE (11:00)
[2018-11-08 12:28] LABS: CLARITY URINE CLEAR (CLEAR); COLOR URINE YELLOW (YELLOW); KETONES URINE TRACE (NEGATIVE); LEUKOCYTE ESTERASE URINE 2+ (NEGATIVE); NITRITE URINE POSITIVE (NEGATIVE); OCCULT BLOOD URINE NEGATIVE (NEGATIVE); PH URINE 5.5 (4.5-8.0); PROTEIN URINE NEGATIVE (NEGATIVE); SPECIFIC GRAVITY URINE 1.015 (1.005-1.030)
[2018-11-08 13:10] LABS: *COCAINE SCREEN URINE PRESUMTIVE POSITIVE (NEGATIVE); CANNABINOID URINE SCREEN NEGATIVE (NEGATIVE); METHADONE URINE SCREEN NEGATIVE (NEGATIVE); OPIATES URINE SCREEN NEGATIVE (NEGATIVE); PHENCYCLIDINE URINE SCREEN NEGATIVE (NEGATIVE)
[2018-11-08 13:11] LABS: *AMPHETAMINES SCREEN URINE NEGATIVE (NEGATIVE); *BARBITURATES SCREEN URINE NEGATIVE (NEGATIVE); *BENZODIAZEPINES SCREEN URINE NEGATIVE (NEGATIVE)
[2018-11-08] MEDS ORDERED: CEFTRIAXONE 1 G PREMIX 50 ML IV ONE (13:15)
[2018-11-08 15:00] VITALS: BP 110/62
== END 2018-11-08 18:41 | disposition short-term general hospital (02) ==
LOC: ER 08:02 → CANBEDREQ 13:55 → ER 18:41
DX: G40.909 Epilepsy, unspecified, not intractable, without status epilepticus (principal); S72.112A Displaced fracture of greater trochanter of left femur, initial encounter for closed fracture; R47.81 Slurred speech; S63.511A Sprain of carpal joint of right wrist, initial encounter; W18.30XA Fall on same level, unspecified, initial encounter; Y93.89 Activity, other specified; Y92.89 Other specified places as the place of occurrence of the external cause; F14.10 Cocaine abuse, uncomplicated; F10.20 Alcohol dependence, uncomplicated; Y90.0 Blood alcohol level of less than 20 mg/100 ml; F17.210 Nicotine dependence, cigarettes, uncomplicated
CPT/HCPCS: 29125; 36415; 70450; 73090; 73100; 73120; 73502; 80053; 80185; 80305; 81003; 85025; 85379; 87077; 87086; 87186; 96365; 96366; 96367; 96368; 99285; J0696; J1165; J1953; J7030; J7050; Z7610

== ENCOUNTER 2018-11-12 07:33 | Emergency (ER) | payer OTHER ==
[~2018-11-12] VITALS: Ht 188 cm; Wt 86.0 kg
[2018-11-12 09:46] LABS: BASOPHILS % 0.6 % (0.0-2.0); HEMATOCRIT. 46.1 % (42.0-52.0); LYMPHOCYTES % 41.4 % (20.0-50.0); MEAN CORPUSCULAR HEMOGLOBIN 34.4 pg (28.0-32.0); MEAN CORPUSCULAR VOLUME 105.4 fL (80.0-94.0); MONOCYTES % 13.7 % (2.0-8.0); NEUTROPHILS % 42.3 % (40.0-76.0); PLATELET 181 x1000/uL (130-400); RED BLOOD CELL COUNT 4.37 mill/uL (4.7-6.1); RED CELL DISTRIBUTION WIDTH 13.5 % (11.6-14.6)
[2018-11-12 09:49] LABS: CHLORIDE 104 mEq/L (98-107)
[2018-11-12 09:53] LABS: CLARITY URINE CLOUDY (CLEAR); COLOR URINE YELLOW (YELLOW); KETONES URINE NEGATIVE (NEGATIVE); LEUKOCYTE ESTERASE URINE 1+ (NEGATIVE); NITRITE URINE NEGATIVE (NEGATIVE); OCCULT BLOOD URINE NEGATIVE (NEGATIVE); PROTEIN URINE NEGATIVE (NEGATIVE)
[2018-11-12 10:30] VITALS: BP 136/91
[2018-11-12] MEDS ORDERED: PHENYTOIN SODIUM 1,000 MG in SODIUM CHLORIDE 0.9% 100 ML IV ONE (11:15)
== END 2018-11-12 12:42 | disposition left against medical advice (07) ==
LOC: ER 07:38
DX: G40.909 Epilepsy, unspecified, not intractable, without status epilepticus (principal); R89.2 Abnormal level of other drugs, medicaments and biological substances in specimens from other organs, systems and tissues; Z91.14 Patient's other noncompliance with medication regimen; M25.551 Pain in right hip; W01.0XXA Fall on same level from slipping, tripping and stumbling without subsequent striking against object, initial encounter; Y93.89 Activity, other specified; Y92.410 Unspecified street and highway as the place of occurrence of the external cause; I10 Essential (primary) hypertension; F10.20 Alcohol dependence, uncomplicated; Y90.9 Presence of alcohol in blood, level not specified
CPT/HCPCS: 36415; 73502; 80053; 80185; 81003; 85025; 87086; 99284; J1165; J7050

== ENCOUNTER 2018-11-17 18:01 | Emergency (ER) | payer OTHER ==
[~2018-11-17] VITALS: Ht 195.6 cm; Wt 96.0 kg
[2018-11-17 18:20] VITALS: BP 99/66
== END 2018-11-17 22:31 | disposition home or self-care (01) ==
LOC: ER 18:01
DX: F10.229 Alcohol dependence with intoxication, unspecified (principal); Y90.0 Blood alcohol level of less than 20 mg/100 ml; G92 Toxic encephalopathy; I10 Essential (primary) hypertension
CPT/HCPCS: 99283

== ENCOUNTER 2018-11-19 17:14 | Emergency (ER) | payer MEDICAID, OTHER ==
[~2018-11-19] VITALS: Ht 175.3 cm; Wt 76.0 kg
[2018-11-19] MEDS ORDERED: ONDANSETRON HCL 4MG/2ML INJ IV STA (20:44)
[2018-11-19] MEDS ORDERED: SODIUM CHLORIDE 0.9% 1,000 ML IV ONE (20:44)
[2018-11-19 22:51] LABS: *BARBITURATES SCREEN URINE NEGATIVE (NEGATIVE); CANNABINOID URINE SCREEN NEGATIVE (NEGATIVE); METHADONE URINE SCREEN NEGATIVE (NEGATIVE); OPIATES URINE SCREEN NEGATIVE (NEGATIVE); PHENCYCLIDINE URINE SCREEN NEGATIVE (NEGATIVE)
[2018-11-19 22:53] LABS: *AMPHETAMINES SCREEN URINE NEGATIVE (NEGATIVE); *BENZODIAZEPINES SCREEN URINE NEGATIVE (NEGATIVE); *COCAINE SCREEN URINE NEGATIVE (NEGATIVE)
[2018-11-19 23:20] LABS: HEMATOCRIT. 36.5 % (42.0-52.0); HEMOGLOBIN. 12.4 g/dL (14.0-18.0); MEAN CORPUSCULAR HEMOGLOBIN 34.6 pg (28.0-32.0); MEAN CORPUSCULAR VOLUME 102.2 fL (80.0-94.0); MEAN PLATELET VOLUME 8.7 fl (7.4-10.4); PLATELET 225 x1000/uL (130-400); RED BLOOD CELL COUNT 3.58 mill/uL (4.7-6.1); RED CELL DISTRIBUTION WIDTH 13.4 % (11.6-14.6)
[2018-11-19 23:27] LABS: CHLORIDE 105 mEq/L (98-107); PLATELET ESTIMATE NORMAL
[2018-11-19 23:33] LABS: ETHANOL BLOOD 158 mg/dL
[2018-11-19 23:36] LABS: CREATINE KINASE 292 IU/L (39-308)
[2018-11-20 06:25] VITALS: BP 94/40
== END 2018-11-20 06:47 | disposition home or self-care (01) ==
LOC: ER 17:14
DX: T51.0X1A Toxic effect of ethanol, accidental (unintentional), initial encounter (principal); G92 Toxic encephalopathy; F10.10 Alcohol abuse, uncomplicated; Y90.6 Blood alcohol level of 120-199 mg/100 ml; E86.0 Dehydration; Y92.89 Other specified places as the place of occurrence of the external cause
CPT/HCPCS: 36415; 80053; 80305; 82550; 84484; 85025; 87186; 93005; 96361; 96374; 99284; J2405; J7030; Z7610

== ENCOUNTER 2018-11-22 12:09 | Emergency (ER) | payer OTHER | END 2018-11-22 12:15 | disposition left against medical advice (07) | LOC: ER 12:13 | DX: Z53.21 Procedure and treatment not carried out due to patient leaving prior to being seen by health care provider (principal) ==

== ENCOUNTER 2018-12-27 09:40 | Emergency (ER) | payer OTHER ==
[~2018-12-27] VITALS: Ht 177.8 cm; Wt 225.0 kg
[2018-12-27] MEDS ORDERED: KETOROLAC 30MG/ML VIAL IV STA (10:32)
[2018-12-27] MEDS ORDERED: ONDANSETRON HCL 4MG/2ML INJ IV STA (10:32)
[2018-12-27] MEDS ORDERED: SODIUM CHLORIDE 0.9% 1,000 ML IV ONE (10:32)
[2018-12-27 14:59] VITALS: BP 101/70
[2018-12-27 15:29] LABS: CLARITY URINE CLOUDY (CLEAR); COLOR URINE YELLOW (YELLOW); KETONES URINE NEGATIVE (NEGATIVE); LEUKOCYTE ESTERASE URINE 3+ (NEGATIVE); NITRITE URINE POSITIVE (NEGATIVE); OCCULT BLOOD URINE NEGATIVE (NEGATIVE); PH URINE 7.5 (4.5-8.0); PROTEIN URINE NEGATIVE (NEGATIVE); SPECIFIC GRAVITY URINE 1.009 (1.005-1.030); UROBILINOGEN URINE 0.2 E.U./dL (0.2-1.0)
[2018-12-27 15:40] LABS: *AMPHETAMINES SCREEN URINE NEGATIVE (NEGATIVE)
[2018-12-27 15:41] LABS: *BARBITURATES SCREEN URINE NEGATIVE (NEGATIVE); *BENZODIAZEPINES SCREEN URINE NEGATIVE (NEGATIVE); *COCAINE SCREEN URINE NEGATIVE (NEGATIVE)
[2018-12-27 15:43] LABS: CANNABINOID URINE SCREEN NEGATIVE (NEGATIVE); METHADONE URINE SCREEN NEGATIVE (NEGATIVE); OPIATES URINE SCREEN NEGATIVE (NEGATIVE); PHENCYCLIDINE URINE SCREEN NEGATIVE (NEGATIVE)
== END 2018-12-27 17:15 | disposition home or self-care (01) ==
LOC: ER 09:44
DX: F10.229 Alcohol dependence with intoxication, unspecified (principal); Y90.0 Blood alcohol level of less than 20 mg/100 ml; I10 Essential (primary) hypertension; F17.200 Nicotine dependence, unspecified, uncomplicated; F12.10 Cannabis abuse, uncomplicated; Z79.899 Other long term (current) drug therapy
CPT/HCPCS: 80305; 81003; 87077; 87086; 87186; 93005; 99284; J7030; Z7610

== ENCOUNTER 2018-12-28 05:23 | Emergency (ER) | payer OTHER ==
[~2018-12-28] VITALS: Ht 185.4 cm; Wt 93.1 kg
[2018-12-28 08:23] LABS: BASOPHILS % 1.2 % (0.0-2.0); EOSINOPHILS % 1.6 % (0.0-5.0); HEMATOCRIT. 38.7 % (42.0-52.0); HEMOGLOBIN. 13.1 g/dL (14.0-18.0); LYMPHOCYTES % 38.4 % (20.0-50.0); MEAN CORPUSCULAR HEMOGLOBIN 34.2 pg (28.0-32.0); MEAN CORPUSCULAR VOLUME 101.4 fL (80.0-94.0); MEAN PLATELET VOLUME 7.3 fl (7.4-10.4); MONOCYTES % 9.4 % (2.0-8.0); NEUTROPHILS % 49.4 % (40.0-76.0); PLATELET 319 x1000/uL (130-400); RED BLOOD CELL COUNT 3.82 mill/uL (4.7-6.1); RED CELL DISTRIBUTION WIDTH 14.3 % (11.6-14.6)
[2018-12-28 08:26] LABS: CHLORIDE 103 mEq/L (98-107)
[2018-12-28 08:28] LABS: PROTHROMBIN TIME 10.4 sec (9.1-11.1)
[2018-12-28 08:30] LABS: ETHANOL BLOOD < 10 mg/dL
[2018-12-28 08:44] LABS: CLARITY URINE CLOUDY (CLEAR); COLOR URINE YELLOW (YELLOW); KETONES URINE NEGATIVE (NEGATIVE); LEUKOCYTE ESTERASE URINE 3+ (NEGATIVE); NITRITE URINE POSITIVE (NEGATIVE); OCCULT BLOOD URINE NEGATIVE (NEGATIVE); PH URINE 7.5 (4.5-8.0); PROTEIN URINE NEGATIVE (NEGATIVE); SPECIFIC GRAVITY URINE 1.012 (1.005-1.030)
[2018-12-28 09:05] LABS: *BARBITURATES SCREEN URINE NEGATIVE (NEGATIVE); *BENZODIAZEPINES SCREEN URINE NEGATIVE (NEGATIVE); *COCAINE SCREEN URINE NEGATIVE (NEGATIVE)
[2018-12-28 09:06] LABS: *AMPHETAMINES SCREEN URINE NEGATIVE (NEGATIVE); CANNABINOID URINE SCREEN NEGATIVE (NEGATIVE); METHADONE URINE SCREEN NEGATIVE (NEGATIVE); OPIATES URINE SCREEN NEGATIVE (NEGATIVE); PHENCYCLIDINE URINE SCREEN NEGATIVE (NEGATIVE)
[2018-12-28 10:26] VITALS: BP 115/66
== END 2018-12-28 10:46 | disposition home or self-care (01) ==
LOC: ER 05:23
DX: N39.0 Urinary tract infection, site not specified (principal); F12.10 Cannabis abuse, uncomplicated; F10.20 Alcohol dependence, uncomplicated; Y90.0 Blood alcohol level of less than 20 mg/100 ml
CPT/HCPCS: 36415; 70450; 71045; 80053; 80305; 80320; 81003; 82542; 83690; 85025; 85610; 99284; Z7610; G0480

== ENCOUNTER 2019-02-06 16:57 | Emergency (ER) | payer OTHER ==
[~2019-02-06] VITALS: Ht 175.3 cm; Wt 73.0 kg
[2019-02-06] MEDS ORDERED: PHENYTOIN SODIUM EXTENDED 100MG CAPSULE PO ONE (18:45)
[2019-02-06 20:15] LABS: BASOPHILS % 0.5 % (0.0-2.0); EOSINOPHILS % 0.1 % (0.0-5.0); HEMATOCRIT. 38.9 % (42.0-52.0); HEMOGLOBIN. 13.4 g/dL (14.0-18.0); MEAN CORPUSCULAR HEMOGLOBIN 35.1 pg (28.0-32.0); MEAN CORPUSCULAR VOLUME 101.9 fL (80.0-94.0); MEAN PLATELET VOLUME 8.3 fl (7.4-10.4); MONOCYTES % 12.3 % (2.0-8.0); NEUTROPHILS % 65.1 % (40.0-76.0); PLATELET 245 x1000/uL (130-400); RED BLOOD CELL COUNT 3.82 mill/uL (4.7-6.1); RED CELL DISTRIBUTION WIDTH 15.7 % (11.6-14.6)
[2019-02-06 20:18] LABS: CHLORIDE 100 mEq/L (98-107)
[2019-02-06 20:22] LABS: ETHANOL BLOOD < 10 mg/dL
[2019-02-06] MEDS ORDERED: PHENYTOIN 100 MG/4 ML UDC NG ONE (21:30)
[2019-02-06 23:37] VITALS: BP 122/69
== END 2019-02-06 23:37 | disposition home or self-care (01) ==
LOC: ER 16:57
DX: G40.909 Epilepsy, unspecified, not intractable, without status epilepticus (principal); R89.2 Abnormal level of other drugs, medicaments and biological substances in specimens from other organs, systems and tissues; Z79.899 Other long term (current) drug therapy
CPT/HCPCS: 36415; 80185; 80320; 82962; 99283; G0480

== ENCOUNTER 2019-02-14 10:50 | Emergency (ER) | payer OTHER ==
[~2019-02-14] VITALS: Ht 182.9 cm; Wt 79.0 kg
[2019-02-14 12:00] VITALS: BP 108/65
== END 2019-02-14 12:00 | disposition home or self-care (01) ==
LOC: ER 10:50
DX: R56.9 Unspecified convulsions (principal); F10.20 Alcohol dependence, uncomplicated; Y90.9 Presence of alcohol in blood, level not specified; Z79.899 Other long term (current) drug therapy
CPT/HCPCS: 99283

== ENCOUNTER 2019-03-25 18:06 | Emergency (ER) | payer OTHER ==
[~2019-03-25] VITALS: Ht 170.2 cm; Wt 72.0 kg
[2019-03-25] MEDS ORDERED: KETOROLAC 60MG/2ML VIAL IM ONE (18:30)
[2019-03-25 20:09] VITALS: BP 123/74
== END 2019-03-25 20:10 | disposition home or self-care (01) ==
LOC: ER 18:06
DX: S80.01XA Contusion of right knee, initial encounter (principal); Y93.01 Activity, walking, marching and hiking; Y92.481 Parking lot as the place of occurrence of the external cause
CPT/HCPCS: 73562; 96372; 99283; J1885

== ENCOUNTER 2019-03-28 09:08 | Emergency (ER) | payer OTHER ==
[~2019-03-28] VITALS: Ht 188 cm; Wt 86.0 kg
[2019-03-28] MEDS ORDERED: PHENYTOIN SODIUM EXTENDED 100MG CAPSULE PO ONE (10:15)
[2019-03-28] MEDS ORDERED: IBUPROFEN 600MG TABLET PO ONE (10:15)
[2019-03-28] MEDS ORDERED: PHENYTOIN 100 MG/4 ML UDC PO ONE (10:15)
[2019-03-28] MEDS ORDERED: HYDROCODONE/ACETAMINOPHEN 5/325MG TABLET PO ONE (19:15)
[2019-03-29] MEDS ORDERED: MORPHINE SULFATE 2 MG/ML CPJ (NOT FOR IM USE) IV ONE (11:30)
[2019-03-29 12:32] VITALS: BP 98/53
== END 2019-03-29 14:36 | disposition short-term general hospital (02) ==
LOC: ER 09:18
DX: M25.561 Pain in right knee (principal); G40.909 Epilepsy, unspecified, not intractable, without status epilepticus; I10 Essential (primary) hypertension; E11.9 Type 2 diabetes mellitus without complications; Z59.0 Homelessness
CPT/HCPCS: 29505; 73560; 96374; 99285; J2270; Z7610; 81025

== ENCOUNTER 2019-05-04 21:58 | Inpatient (IN) | payer OTHER ==
[~2019-05-04] VITALS: Ht 177.8 cm; Wt 77.1 kg
[2019-05-05] MEDS ORDERED: VANCOMYCIN 1 G PREMIX 200 ML IV ONE (02:00)
[2019-05-05] MEDS ORDERED: SODIUM CHLORIDE 0.9% 1000ML BAG (SEPSIS BOLUS) IV ONE (02:00)
[2019-05-05] MEDS ORDERED: CEFTRIAXONE 1 G PREMIX 50 ML IV ONE (02:00)
[2019-05-05 02:03] LABS: BASOPHILS % 0.9 % (0.0-2.0); EOSINOPHILS % 1.9 % (0.0-5.0); HEMATOCRIT. 41.8 % (42.0-52.0); HEMOGLOBIN. 14.1 g/dL (14.0-18.0); LYMPHOCYTES % 45.4 % (20.0-50.0); MEAN CORPUSCULAR HEMOGLOBIN 33.8 pg (28.0-32.0); MEAN CORPUSCULAR VOLUME 100.4 fL (80.0-94.0); MONOCYTES % 8.7 % (2.0-8.0); NEUTROPHILS % 43.1 % (40.0-76.0); PLATELET 180 x1000/uL (130-400); RED BLOOD CELL COUNT 4.16 mill/uL (4.7-6.1); RED CELL DISTRIBUTION WIDTH 16.6 % (11.6-14.6)
[2019-05-05 02:10] LABS: CHLORIDE 106 mEq/L (98-107)
[2019-05-05 02:14] LABS: ETHANOL BLOOD < 10 mg/dL
[2019-05-05 08:00] VITALS: BP 108/72
[2019-05-05 08:32] VITALS: BP 124/71
[2019-05-05 12:00] VITALS: BP 109/72
[2019-05-05] MEDS: PHENYTOIN SODIUM EXTENDED 100MG CAPSULE PO SCH ×2 (13:53→21:39)
[2019-05-05] MEDS: FOLIC ACID 1MG TABLET PO SCH (15:31)
[2019-05-05] MEDS: MULTIVITAMINS,THER W-MINERALS TABLET PO SCH (15:31)
[2019-05-05] MEDS: THIAMINE HCL 100MG TABLET PO SCH (15:31)
[2019-05-05 16:00] VITALS: BP 91/61
[2019-05-05] MEDS ORDERED: LORAZEPAM 0.5MG TABLET PO PRN (18:30)
[2019-05-05] MEDS ORDERED: IPRATROPIUM/ALBUTEROL 0.5-3(2.5)MG/3ML NEB INH PRN (18:30)
[2019-05-05] MEDS ORDERED: ACETAMINOPHEN 325MG TABLET PO PRN (18:30)
[2019-05-05] MEDS ORDERED: HYDROCODONE/ACETAMINOPHEN 5/325MG TABLET PO PRN (18:30)
[2019-05-05] MEDS ORDERED: DOCUSATE SODIUM 100MG CAPSULE PO PRN (18:30)
[2019-05-05] MEDS ORDERED: CLONIDINE 0.1MG TABLET PO PRN (18:30)
[2019-05-05] MEDS ORDERED: LORAZEPAM 2MG/ML CPJ IV PRN (18:30)
[2019-05-05] MEDS ORDERED: ONDANSETRON HCL 4MG/2ML INJ IV PRN (18:30)
[2019-05-05 20:00] VITALS: BP 104/60
[2019-05-05] MEDS: LEVETIRACETAM 500MG TABLET PO SCH (21:39)
[2019-05-06] VITALS: BP 98/51
[2019-05-06 04:00] VITALS: BP 99/59
[2019-05-06 06:50] LABS: BASOPHILS % 0.9 % (0.0-2.0); EOSINOPHILS % 1.4 % (0.0-5.0); HEMOGLOBIN. 12.2 g/dL (14.0-18.0); LYMPHOCYTES % 34.3 % (20.0-50.0); MEAN CORPUSCULAR HEMOGLOBIN 34.1 pg (28.0-32.0); MEAN CORPUSCULAR VOLUME 100.7 fL (80.0-94.0); MONOCYTES % 8.3 % (2.0-8.0); NEUTROPHILS % 55.1 % (40.0-76.0); RED BLOOD CELL COUNT 3.57 mill/uL (4.7-6.1); RED CELL DISTRIBUTION WIDTH 16.5 % (11.6-14.6)
[2019-05-06 07:09] LABS: CHLORIDE 105 mEq/L (98-107)
[2019-05-06 07:34] LABS: MEAN PLATELET VOLUME 9.2 fl (7.4-10.4); PLATELET 163 x1000/uL (130-400)
[2019-05-06 08:00] VITALS: BP 100/65
[2019-05-06] MEDS: MULTIVITAMINS,THER W-MINERALS TABLET PO SCH (08:28)
[2019-05-06] MEDS: FOLIC ACID 1MG TABLET PO SCH (08:28)
[2019-05-06] MEDS: PHENYTOIN SODIUM EXTENDED 100MG CAPSULE PO SCH ×3 (08:28→21:00)
[2019-05-06] MEDS: LEVETIRACETAM 500MG TABLET PO SCH ×2 (08:28→20:50)
[2019-05-06] MEDS: THIAMINE HCL 100MG TABLET PO SCH (08:28)
[2019-05-06] MEDS: NICOTINE 21MG PATCH TD SCH (08:29)
[2019-05-06 11:55] VITALS: BP 89/60
[2019-05-06] MEDS ORDERED: PHENYTOIN SODIUM IV SCH (12:00)
[2019-05-06] MEDS ORDERED: SODIUM CHLORIDE 0.9% IV SCH (12:00)
[2019-05-06 16:03] VITALS: BP 91/55
[2019-05-06 20:00] VITALS: BP 99/66
[2019-05-07] VITALS (7 sets, daily range): BP systolic 82–97; BP diastolic 50–69
[2019-05-07] MEDS: PHENYTOIN SODIUM EXTENDED 100MG CAPSULE PO SCH ×3 (05:40→21:21)
[2019-05-07] MEDS ORDERED: LIDOCAINE HCL 1% 20ML VIAL (Pyxis) INJ ONE (07:54)
[2019-05-07] MEDS: MULTIVITAMINS,THER W-MINERALS TABLET PO SCH (09:10)
[2019-05-07] MEDS: THIAMINE HCL 100MG TABLET PO SCH (09:10)
[2019-05-07] MEDS: FOLIC ACID 1MG TABLET PO SCH (09:10)
[2019-05-07] MEDS: LEVETIRACETAM 500MG TABLET PO SCH ×2 (09:10→20:08)
[2019-05-07] MEDS: NICOTINE 21MG PATCH TD SCH (09:11)
[2019-05-08] VITALS: BP 92/47
[2019-05-08 04:00] VITALS: BP 90/62
[2019-05-08] MEDS: PHENYTOIN SODIUM EXTENDED 100MG CAPSULE PO SCH ×2 (06:39→15:40)
[2019-05-08 08:00] VITALS: BP 97/55
[2019-05-08 08:06] LABS: BASOPHILS % 0.4 % (0.0-2.0); EOSINOPHILS % 1.7 % (0.0-5.0); HEMATOCRIT. 34.1 % (42.0-52.0); HEMOGLOBIN. 11.5 g/dL (14.0-18.0); LYMPHOCYTES % 34.2 % (20.0-50.0); MEAN CORPUSCULAR HEMOGLOBIN 33.8 pg (28.0-32.0); MEAN CORPUSCULAR VOLUME 100.7 fL (80.0-94.0); MEAN PLATELET VOLUME 7.9 fl (7.4-10.4); MONOCYTES % 12.3 % (2.0-8.0); NEUTROPHILS % 51.4 % (40.0-76.0); PLATELET 195 x1000/uL (130-400); RED BLOOD CELL COUNT 3.39 mill/uL (4.7-6.1); RED CELL DISTRIBUTION WIDTH 16.7 % (11.6-14.6)
[2019-05-08 08:08] LABS: CHLORIDE 103 mEq/L (98-107)
[2019-05-08] MEDS: MULTIVITAMINS,THER W-MINERALS TABLET PO SCH (09:06)
[2019-05-08] MEDS: THIAMINE HCL 100MG TABLET PO SCH (09:07)
[2019-05-08] MEDS: LEVETIRACETAM 500MG TABLET PO SCH (09:07)
[2019-05-08] MEDS: FOLIC ACID 1MG TABLET PO SCH (09:07)
[2019-05-08] MEDS: NICOTINE 21MG PATCH TD SCH (09:08)
[2019-05-08 12:00] VITALS: BP 94/53
[2019-05-08] MEDS ORDERED: PHENYTOIN SODIUM 1,000 MG in SODIUM CHLORIDE 0.9% 100 ML IV NR (13:00)
[2019-05-08 15:35] VITALS: BP 92/56
[2019-05-08 15:58] VITALS: BP 91/56
== END 2019-05-08 17:37 | disposition home or self-care (01) | DRG 26 ==
LOC: ER 21:58 → EDBEDREQ 05-05 01:57 → EDBEDREQTM 05-05 03:02 → EDBEDREQ 05-05 03:02 → ENRESERV 05-05 04:16 → 6EST 05-05 04:45
PROVIDERS: ADMIT Internal Medicine; ATTEND Internal Medicine
PROC: 0JDR0ZZ Extraction of Left Foot Subcutaneous Tissue and Fascia, Open Approach (ICD-10-PCS; principal; 2019-05-05)
PROC: 0JDQ0ZZ Extraction of Right Foot Subcutaneous Tissue and Fascia, Open Approach (ICD-10-PCS; 2019-05-05)
PROC: 02HV33Z Insertion of Infusion Device into Superior Vena Cava, Percutaneous Approach (ICD-10-PCS; 2019-05-07)
PROC: B5181ZA Fluoroscopy of Superior Vena Cava using Low Osmolar Contrast, Guidance (ICD-10-PCS; 2019-05-07)
PROC: B548ZZA Ultrasonography of Superior Vena Cava, Guidance (ICD-10-PCS; 2019-05-07)
PROC: 4A00X4Z Measurement of Central Nervous Electrical Activity, External Approach (ICD-10-PCS; 2019-05-08)
DX: G40.909 Epilepsy, unspecified, not intractable, without status epilepticus (principal); E11.51 Type 2 diabetes mellitus with diabetic peripheral angiopathy without gangrene; D64.9 Anemia, unspecified; M20.42 Other hammer toe(s) (acquired), left foot; F10.10 Alcohol abuse, uncomplicated; F17.210 Nicotine dependence, cigarettes, uncomplicated; I10 Essential (primary) hypertension; L84 Corns and callosities; Z91.19 Patient's noncompliance with other medical treatment and regimen; Z79.84 Long term (current) use of oral hypoglycemic drugs; D75.89 Other specified diseases of blood and blood-forming organs; F14.10 Cocaine abuse, uncomplicated; M20.41 Other hammer toe(s) (acquired), right foot; W18.39XA Other fall on same level, initial encounter; Y93.89 Activity, other specified; Y92.89 Other specified places as the place of occurrence of the external cause; Y99.8 Other external cause status
CPT/HCPCS: 36415; 36573; 70551; 73562; 80048; 80185; 80320; 82962; 83036; 83605; 96374; 97110; 97116; 97162; 97166; 99285; C1725; C1893; J1165; J3490; J7030; J7050; G0480

== ENCOUNTER 2019-05-22 16:11 | Emergency (ER) | payer MEDICAID, OTHER ==
[~2019-05-22] VITALS: Ht 182.9 cm; Wt 85.0 kg
[2019-05-22] MEDS ORDERED: ONDANSETRON HCL 4MG/2ML INJ IV STA (18:10)
[2019-05-22] MEDS ORDERED: SODIUM CHLORIDE 0.9% 1,000 ML IV ONE (18:10)
[2019-05-22 18:55] LABS: BASOPHILS % 0.6 % (0.0-2.0); HEMATOCRIT. 32.1 % (42.0-52.0); LYMPHOCYTES % 39.9 % (20.0-50.0); MEAN PLATELET VOLUME 7.7 fl (7.4-10.4); MONOCYTES % 7.1 % (2.0-8.0); NEUTROPHILS % 51.4 % (40.0-76.0); PLATELET 296 x1000/uL (130-400); RED BLOOD CELL COUNT 3.24 mill/uL (4.7-6.1); RED CELL DISTRIBUTION WIDTH 16.4 % (11.6-14.6)
[2019-05-22 19:02] LABS: CHLORIDE 106 mEq/L (98-107)
[2019-05-22 19:03] LABS: CLARITY URINE CLOUDY (CLEAR); COLOR URINE YELLOW (YELLOW); KETONES URINE NEGATIVE (NEGATIVE); LEUKOCYTE ESTERASE URINE 3+ (NEGATIVE); NITRITE URINE NEGATIVE (NEGATIVE); OCCULT BLOOD URINE NEGATIVE (NEGATIVE); PH URINE 5.5 (4.5-8.0); PROTEIN URINE NEGATIVE (NEGATIVE); SPECIFIC GRAVITY URINE 1.008 (1.005-1.030); UROBILINOGEN URINE 0.2 E.U./dL (0.2-1.0)
[2019-05-22 19:06] LABS: ETHANOL BLOOD 168 mg/dL
[2019-05-22 19:11] LABS: CREATINE KINASE 127 IU/L (39-308)
[2019-05-22 19:17] LABS: *AMPHETAMINES SCREEN URINE NEGATIVE (NEGATIVE); *BARBITURATES SCREEN URINE NEGATIVE (NEGATIVE); *BENZODIAZEPINES SCREEN URINE NEGATIVE (NEGATIVE); *COCAINE SCREEN URINE NEGATIVE (NEGATIVE); METHADONE URINE SCREEN NEGATIVE (NEGATIVE); OPIATES URINE SCREEN NEGATIVE (NEGATIVE)
[2019-05-22 19:18] LABS: CANNABINOID URINE SCREEN NEGATIVE (NEGATIVE); PHENCYCLIDINE URINE SCREEN NEGATIVE (NEGATIVE)
[2019-05-23 00:14] VITALS: BP 107/75
== END 2019-05-23 00:24 | disposition home or self-care (01) ==
LOC: ER 17:21
DX: T51.0X1A Toxic effect of ethanol, accidental (unintentional), initial encounter (principal); G92 Toxic encephalopathy; F10.20 Alcohol dependence, uncomplicated; Y90.6 Blood alcohol level of 120-199 mg/100 ml; N39.0 Urinary tract infection, site not specified; R53.1 Weakness; R27.0 Ataxia, unspecified; Y92.89 Other specified places as the place of occurrence of the external cause
CPT/HCPCS: 36415; 80053; 80305; 80307; 80320; 80329; 81003; 82550; 84443; 85025; 87077; 87086; 87186; 93005; 96374; 99284; J2405; J7030; G0480

== ENCOUNTER 2019-06-24 13:11 | Emergency (ER) | payer MEDICAID, OTHER ==
[~2019-06-24] VITALS: Ht 218.4 cm; Wt 100.0 kg
[2019-06-24] MEDS ORDERED: SODIUM CHLORIDE 0.9% 1,000 ML IV ONE (15:08)
[2019-06-24] MEDS ORDERED: ONDANSETRON HCL 4MG/2ML INJ IV STA (15:08)
[2019-06-24 15:13] VITALS: BP 139/96
== END 2019-06-24 15:44 | disposition left against medical advice (07) ==
LOC: ER 13:11
DX: F10.129 Alcohol abuse with intoxication, unspecified (principal); Y90.9 Presence of alcohol in blood, level not specified
CPT/HCPCS: 99283; J7030

== ENCOUNTER 2019-07-19 00:34 | Emergency (ER) | payer MEDICAID ==
[~2019-07-19] VITALS: Ht 185.4 cm; Wt 86.0 kg
[2019-07-19] MEDS ORDERED: SODIUM CHLORIDE 0.9% 1,000 ML IV ONE (02:12)
[2019-07-19 03:47] LABS: BASOPHILS % 0.6 % (0.0-2.0); EOSINOPHILS % 0.8 % (0.0-5.0); HEMATOCRIT. 42.1 % (42.0-52.0); HEMOGLOBIN. 14.1 g/dL (14.0-18.0); LYMPHOCYTES % 67.5 % (20.0-50.0); MEAN CORPUSCULAR HEMOGLOBIN 34.3 pg (28.0-32.0); MEAN CORPUSCULAR VOLUME 102.1 fL (80.0-94.0); MEAN PLATELET VOLUME 8.2 fl (7.4-10.4); MONOCYTES % 5.4 % (2.0-8.0); NEUTROPHILS % 25.7 % (40.0-76.0); PLATELET 199 x1000/uL (130-400); RED BLOOD CELL COUNT 4.12 mill/uL (4.7-6.1); RED CELL DISTRIBUTION WIDTH 16.5 % (11.6-14.6)
[2019-07-19 03:51] LABS: CHLORIDE 104 mEq/L (98-107)
[2019-07-19 04:23] LABS: ETHANOL BLOOD 255 mg/dL
[2019-07-19 09:15] VITALS: BP 108/65
[2019-07-19 09:19] LABS: CLARITY URINE CLEAR (CLEAR); COLOR URINE YELLOW (YELLOW); KETONES URINE NEGATIVE (NEGATIVE); LEUKOCYTE ESTERASE URINE 2+ (NEGATIVE); NITRITE URINE NEGATIVE (NEGATIVE); OCCULT BLOOD URINE NEGATIVE (NEGATIVE); PROTEIN URINE NEGATIVE (NEGATIVE); SPECIFIC GRAVITY URINE 1.004 (1.005-1.030); UROBILINOGEN URINE 0.2 E.U./dL (0.2-1.0)
[2019-07-19 09:30] LABS: *AMPHETAMINES SCREEN URINE NEGATIVE (NEGATIVE); *BARBITURATES SCREEN URINE NEGATIVE (NEGATIVE); *BENZODIAZEPINES SCREEN URINE NEGATIVE (NEGATIVE); *COCAINE SCREEN URINE PRESUMTIVE POSITIVE (NEGATIVE)
[2019-07-19 09:31] LABS: CANNABINOID URINE SCREEN NEGATIVE (NEGATIVE); METHADONE URINE SCREEN NEGATIVE (NEGATIVE); OPIATES URINE SCREEN NEGATIVE (NEGATIVE)
[2019-07-19 09:32] LABS: PHENCYCLIDINE URINE SCREEN NEGATIVE (NEGATIVE)
== END 2019-07-19 11:00 | disposition left against medical advice (07) ==
LOC: ER 00:34
DX: F10.129 Alcohol abuse with intoxication, unspecified (principal); Y90.8 Blood alcohol level of 240 mg/100 ml or more; E11.9 Type 2 diabetes mellitus without complications; Z79.899 Other long term (current) drug therapy
CPT/HCPCS: 36415; 80053; 80185; 80305; 80320; 81003; 85025; 99283; J7030; Z7610; G0480

== ENCOUNTER 2019-07-19 18:23 | Emergency (ER) | payer MEDICAID ==
[~2019-07-19] VITALS: Ht 177.8 cm; Wt 68.0 kg
[2019-07-20] MEDS ORDERED: PHENYTOIN SODIUM EXTENDED 100MG CAPSULE PO ONE (02:15)
[2019-07-20 02:30] VITALS: BP 121/88
== END 2019-07-20 03:29 | disposition home or self-care (01) ==
LOC: ER 18:23
DX: F10.229 Alcohol dependence with intoxication, unspecified (principal); Y90.6 Blood alcohol level of 120-199 mg/100 ml; R00.1 Bradycardia, unspecified; Z71.41 Alcohol abuse counseling and surveillance of alcoholic
CPT/HCPCS: 36415; 80320; 93005; 99284; Z7610; G0480

== ENCOUNTER 2019-08-10 09:44 | Emergency (ER) | payer MEDICAID ==
[~2019-08-10] VITALS: Ht 195.6 cm; Wt 90.0 kg
[2019-08-10 10:49] VITALS: BP 100/68
== END 2019-08-10 10:49 | disposition home or self-care (01) ==
LOC: ER 09:44
DX: G40.909 Epilepsy, unspecified, not intractable, without status epilepticus (principal); E11.9 Type 2 diabetes mellitus without complications; F14.10 Cocaine abuse, uncomplicated; F10.21 Alcohol dependence, in remission
CPT/HCPCS: 99283

== ENCOUNTER 2019-11-12 01:15 | Emergency (ER) | payer OTHER ==
[~2019-11-12] VITALS: Ht 185.4 cm; Wt 91.0 kg
[2019-11-12] MEDS ORDERED: LEVETIRACETAM 500MG TABLET PO ONE (02:30)
[2019-11-12] MEDS ORDERED: PHENYTOIN SODIUM EXTENDED 100MG CAPSULE PO ONE (02:45)
[2019-11-12 10:17] VITALS: BP 132/87
== END 2019-11-12 09:30 | disposition home or self-care (01) ==
LOC: ER 01:31
DX: T40.5X1A Poisoning by cocaine, accidental (unintentional), initial encounter (principal); T51.0X1A Toxic effect of ethanol, accidental (unintentional), initial encounter; G40.909 Epilepsy, unspecified, not intractable, without status epilepticus; F14.188 Cocaine abuse with other cocaine-induced disorder; F10.229 Alcohol dependence with intoxication, unspecified; Y90.9 Presence of alcohol in blood, level not specified; Y92.89 Other specified places as the place of occurrence of the external cause
CPT/HCPCS: 99283; Z7610

== ENCOUNTER 2019-11-21 21:09 | Emergency (ER) | payer OTHER ==
[~2019-11-21] VITALS: Ht 182.9 cm; Wt 75.0 kg
[2019-11-22] MEDS ORDERED: SODIUM CHLORIDE 0.9% 1,000 ML IV ONE (01:21)
[2019-11-22] MEDS ORDERED: ONDANSETRON HCL 4MG/2ML INJ IV STA (01:21)
[2019-11-22 01:40] LABS: BASOPHILS % 1.1 % (0.0-2.0); EOSINOPHILS % 1.6 % (0.0-5.0); HEMATOCRIT. 38.4 % (42.0-52.0); HEMOGLOBIN. 13.5 g/dL (14.0-18.0); LYMPHOCYTES % 58.8 % (20.0-50.0); MEAN CORPUSCULAR HEMOGLOBIN 36.2 pg (28.0-32.0); MEAN CORPUSCULAR VOLUME 103.4 fL (80.0-94.0); MEAN PLATELET VOLUME 7.8 fl (7.4-10.4); MONOCYTES % 9.9 % (2.0-8.0); NEUTROPHILS % 28.6 % (40.0-76.0); PLATELET 235 x1000/uL (130-400); RED BLOOD CELL COUNT 3.71 mill/uL (4.7-6.1); RED CELL DISTRIBUTION WIDTH 14.6 % (11.6-14.6)
[2019-11-22 01:43] LABS: CHLORIDE 97 mEq/L (98-107)
[2019-11-22 01:47] LABS: ETHANOL BLOOD 38 mg/dL
[2019-11-22 02:26] LABS: CLARITY URINE CLEAR (CLEAR); COLOR URINE YELLOW (YELLOW); KETONES URINE NEGATIVE (NEGATIVE); LEUKOCYTE ESTERASE URINE 2+ (NEGATIVE); NITRITE URINE POSITIVE (NEGATIVE); OCCULT BLOOD URINE NEGATIVE (NEGATIVE); PH URINE 5.5 (4.5-8.0); PROTEIN URINE NEGATIVE (NEGATIVE); SPECIFIC GRAVITY URINE 1.012 (1.005-1.030); UROBILINOGEN URINE 0.2 E.U./dL (0.2-1.0)
[2019-11-22 02:39] LABS: METHADONE URINE SCREEN NEGATIVE (NEGATIVE); OPIATES URINE SCREEN NEGATIVE (NEGATIVE)
[2019-11-22 02:40] LABS: *AMPHETAMINES SCREEN URINE NEGATIVE (NEGATIVE); *BARBITURATES SCREEN URINE NEGATIVE (NEGATIVE); *BENZODIAZEPINES SCREEN URINE NEGATIVE (NEGATIVE); *COCAINE SCREEN URINE PRESUMTIVE POSITIVE (NEGATIVE); CANNABINOID URINE SCREEN NEGATIVE (NEGATIVE); PHENCYCLIDINE URINE SCREEN NEGATIVE (NEGATIVE)
[2019-11-22] MEDS ORDERED: CEPHALEXIN 250MG CAPSULE PO ONE (03:30)
[2019-11-22 05:28] VITALS: BP 120/69
== END 2019-11-22 05:28 | disposition home or self-care (01) ==
LOC: ER 21:09
DX: N39.0 Urinary tract infection, site not specified (principal); R11.2 Nausea with vomiting, unspecified; F10.20 Alcohol dependence, uncomplicated; Y90.0 Blood alcohol level of less than 20 mg/100 ml; E11.9 Type 2 diabetes mellitus without complications; Z79.899 Other long term (current) drug therapy
CPT/HCPCS: 36415; 80053; 80305; 80320; 81003; 83690; 85025; 99283; J7030; G0480

== ENCOUNTER 2019-12-04 08:05 | Emergency (ER) | payer OTHER ==
[~2019-12-04] VITALS: Ht 177.8 cm; Wt 82.0 kg
[2019-12-04 08:15] VITALS: BP 134/72
== END 2019-12-04 10:14 | disposition home or self-care (01) ==
LOC: ER 08:05
DX: R56.9 Unspecified convulsions (principal); Z91.14 Patient's other noncompliance with medication regimen; E11.9 Type 2 diabetes mellitus without complications; F10.20 Alcohol dependence, uncomplicated; Y90.0 Blood alcohol level of less than 20 mg/100 ml; Z79.899 Other long term (current) drug therapy
CPT/HCPCS: 99283

== ENCOUNTER 2019-12-10 20:40 | Emergency (ER) | payer OTHER ==
[~2019-12-10] VITALS: Ht 172.7 cm; Wt 81.0 kg
[2019-12-10] MEDS ORDERED: ONDANSETRON HCL 4MG/2ML INJ IV STA (22:17)
[2019-12-10] MEDS ORDERED: SODIUM CHLORIDE 0.9% 1,000 ML IV ONE (22:17)
[2019-12-10] MEDS ORDERED: FOLIC ACID 1 MG, THIAMINE HCL 100 MG, MVI, ADULT NO.1 10 ML in DEXTROSE 5% WATER 1,000 ML IV ONE ×4 (22:30)
[2019-12-10] MEDS ORDERED: LORAZEPAM 2MG/ML CPJ IV ONE (22:30)
[2019-12-10] MEDS ORDERED: LEVETIRACETAM 500MG PREMIX 100 ML IV ONE (22:30)
[2019-12-10 22:57] LABS: BASOPHILS % 0.9 % (0.0-2.0); HEMOGLOBIN. 13.4 g/dL (14.0-18.0); LYMPHOCYTES % 38.6 % (20.0-50.0); MEAN CORPUSCULAR HEMOGLOBIN 35.4 pg (28.0-32.0); MEAN CORPUSCULAR VOLUME 102.9 fL (80.0-94.0); MONOCYTES % 7.9 % (2.0-8.0); NEUTROPHILS % 50.6 % (40.0-76.0); PLATELET 239 x1000/uL (130-400); RED BLOOD CELL COUNT 3.79 mill/uL (4.7-6.1); RED CELL DISTRIBUTION WIDTH 13.6 % (11.6-14.6)
[2019-12-10 23:01] LABS: CHLORIDE 100 mEq/L (98-107)
[2019-12-10 23:08] LABS: ETHANOL BLOOD 80 mg/dL
[2019-12-10 23:12] LABS: CREATINE KINASE 122 IU/L (39-308)
[2019-12-10 23:29] LABS: CARBAMAZEPINE < 0.5 ug/mL (4-12); PHENOBARBITAL < 2.1 ug/mL (15.0-40.0); VALPROIC ACID < 3.0 ug/mL (50-100)
[2019-12-11 00:38] LABS: CLARITY URINE CLEAR (CLEAR); COLOR URINE YELLOW (YELLOW); KETONES URINE NEGATIVE (NEGATIVE); LEUKOCYTE ESTERASE URINE 2+ (NEGATIVE); NITRITE URINE POSITIVE (NEGATIVE); OCCULT BLOOD URINE NEGATIVE (NEGATIVE); PH URINE 5.5 (4.5-8.0); PROTEIN URINE NEGATIVE (NEGATIVE); SPECIFIC GRAVITY URINE 1.006 (1.005-1.030); UROBILINOGEN URINE 0.2 E.U./dL (0.2-1.0)
[2019-12-11 00:50] LABS: *BARBITURATES SCREEN URINE NEGATIVE (NEGATIVE); *BENZODIAZEPINES SCREEN URINE NEGATIVE (NEGATIVE); *COCAINE SCREEN URINE NEGATIVE (NEGATIVE); METHADONE URINE SCREEN NEGATIVE (NEGATIVE)
[2019-12-11 00:52] LABS: *AMPHETAMINES SCREEN URINE NEGATIVE (NEGATIVE); CANNABINOID URINE SCREEN NEGATIVE (NEGATIVE); PHENCYCLIDINE URINE SCREEN NEGATIVE (NEGATIVE)
[2019-12-11] MEDS ORDERED: LEVOFLOXACIN 500MG PREMIX 100 ML IV ONE (01:15)
[2019-12-11 04:18] VITALS: BP 109/66
== END 2019-12-11 04:24 | disposition home or self-care (01) ==
LOC: ER 20:40
DX: T51.0X1A Toxic effect of ethanol, accidental (unintentional), initial encounter (principal); R56.9 Unspecified convulsions; E86.0 Dehydration; N39.0 Urinary tract infection, site not specified; Z91.14 Patient's other noncompliance with medication regimen; Y92.89 Other specified places as the place of occurrence of the external cause
CPT/HCPCS: 36415; 70450; 80053; 80156; 80165; 80184; 80185; 80305; 80320; 81003; 82550; 84443; 85025; 93005; 96365; 96366; 96367; 96368; 96375; 99285; J1953; J1956; J2405; J3411; J3490; J7030; J7070; G0480

== ENCOUNTER 2019-12-27 22:29 | Emergency (ER) | payer OTHER ==
[~2019-12-27] VITALS: Ht 177.8 cm; Wt 63.0 kg
[2019-12-28] MEDS ORDERED: CHLORDIAZEPOXIDE 25MG CAPSULE PO ONE (01:15)
[2019-12-28] MEDS ORDERED: PHENYTOIN SODIUM EXTENDED 100MG CAPSULE PO ONE (01:15)
[2019-12-28 01:37] LABS: BASOPHILS % 1.1 % (0.0-2.0); EOSINOPHILS % 1.1 % (0.0-5.0); HEMATOCRIT. 40.6 % (42.0-52.0); HEMOGLOBIN. 14.3 g/dL (14.0-18.0); LYMPHOCYTES % 28.5 % (20.0-50.0); MEAN CORPUSCULAR HEMOGLOBIN 35.7 pg (28.0-32.0); MEAN CORPUSCULAR VOLUME 101.2 fL (80.0-94.0); MEAN PLATELET VOLUME 8.6 fl (7.4-10.4); MONOCYTES % 11.4 % (2.0-8.0); NEUTROPHILS % 57.9 % (40.0-76.0); PLATELET 245 x1000/uL (130-400); RED BLOOD CELL COUNT 4.01 mill/uL (4.7-6.1); RED CELL DISTRIBUTION WIDTH 13.9 % (11.6-14.6)
[2019-12-28 01:45] LABS: CHLORIDE 96 mEq/L (98-107)
[2019-12-28 01:49] LABS: ETHANOL BLOOD 73 mg/dL
[2019-12-28 11:22] VITALS: BP 133/84
== END 2019-12-28 11:29 | disposition home or self-care (01) ==
LOC: ER 22:29
DX: G40.909 Epilepsy, unspecified, not intractable, without status epilepticus (principal); R52 Pain, unspecified; F10.129 Alcohol abuse with intoxication, unspecified; Y90.3 Blood alcohol level of 60-79 mg/100 ml; R03.0 Elevated blood-pressure reading, without diagnosis of hypertension; Z59.0 Homelessness
CPT/HCPCS: 36415; 80053; 80185; 80320; 85025; 99285; G0480

== ENCOUNTER 2020-01-19 10:22 | Emergency (ER) | payer OTHER ==
[~2020-01-19] VITALS: Ht 175.3 cm; Wt 80.0 kg
[2020-01-19] MEDS ORDERED: IBUPROFEN 600MG TABLET PO STA (10:50)
[2020-01-19] MEDS ORDERED: PHENYTOIN SODIUM EXTENDED 100MG CAPSULE PO ONE (11:00)
[2020-01-19 11:33] VITALS: BP 108/68
[2020-01-19 13:01] LABS: BASOPHILS % 0.6 % (0.0-2.0); EOSINOPHILS % 1.7 % (0.0-5.0); HEMATOCRIT. 36.6 % (42.0-52.0); HEMOGLOBIN. 12.6 g/dL (14.0-18.0); LYMPHOCYTES % 27.6 % (20.0-50.0); MEAN CORPUSCULAR HEMOGLOBIN 34.4 pg (28.0-32.0); MEAN CORPUSCULAR VOLUME 99.5 fL (80.0-94.0); MEAN PLATELET VOLUME 8.6 fl (7.4-10.4); MONOCYTES % 12.8 % (2.0-8.0); NEUTROPHILS % 57.3 % (40.0-76.0); PLATELET 243 x1000/uL (130-400); RED BLOOD CELL COUNT 3.67 mill/uL (4.7-6.1); RED CELL DISTRIBUTION WIDTH 13.6 % (11.6-14.6)
== END 2020-01-19 14:21 | disposition home or self-care (01) ==
LOC: ER 10:22
DX: G40.909 Epilepsy, unspecified, not intractable, without status epilepticus (principal); M79.605 Pain in left leg; M79.604 Pain in right leg; M79.18 Myalgia, other site; F10.20 Alcohol dependence, uncomplicated; Z79.899 Other long term (current) drug therapy; Y90.9 Presence of alcohol in blood, level not specified
CPT/HCPCS: 36415; 85025; 99283

== ENCOUNTER 2020-01-22 19:24 | Inpatient (IN) | payer OTHER ==
[~2020-01-22] VITALS: Ht 172.7 cm; Wt 82.6 kg
[2020-01-22 21:28] LABS: CLARITY URINE CLEAR (CLEAR); COLOR URINE YELLOW (YELLOW); KETONES URINE NEGATIVE (NEGATIVE); LEUKOCYTE ESTERASE URINE 2+ (NEGATIVE); NITRITE URINE NEGATIVE (NEGATIVE); OCCULT BLOOD URINE NEGATIVE (NEGATIVE); PROTEIN URINE NEGATIVE (NEGATIVE); SPECIFIC GRAVITY URINE 1.018 (1.005-1.030)
[2020-01-22 21:40] LABS: *AMPHETAMINES SCREEN URINE NEGATIVE (NEGATIVE); *BARBITURATES SCREEN URINE NEGATIVE (NEGATIVE); *BENZODIAZEPINES SCREEN URINE NEGATIVE (NEGATIVE); *COCAINE SCREEN URINE NEGATIVE (NEGATIVE); CANNABINOID URINE SCREEN NEGATIVE (NEGATIVE); METHADONE URINE SCREEN NEGATIVE (NEGATIVE); OPIATES URINE SCREEN NEGATIVE (NEGATIVE); PHENCYCLIDINE URINE SCREEN NEGATIVE (NEGATIVE)
[2020-01-22 22:47] LABS: BASOPHILS % 0.8 % (0.0-2.0); EOSINOPHILS % 1.7 % (0.0-5.0); HEMATOCRIT. 34.9 % (42.0-52.0); HEMOGLOBIN. 12.1 g/dL (14.0-18.0); LYMPHOCYTES % 44.2 % (20.0-50.0); MEAN CORPUSCULAR HEMOGLOBIN 34.7 pg (28.0-32.0); MEAN CORPUSCULAR VOLUME 99.5 fL (80.0-94.0); MEAN PLATELET VOLUME 8.2 fl (7.4-10.4); NEUTROPHILS % 43.3 % (40.0-76.0); PLATELET 228 x1000/uL (130-400); RED CELL DISTRIBUTION WIDTH 13.8 % (11.6-14.6)
[2020-01-22 22:54] LABS: CHLORIDE 97 mEq/L (98-107)
[2020-01-22 22:58] LABS: ETHANOL BLOOD < 10 mg/dL
[2020-01-22] MEDS ORDERED: PHENYTOIN SODIUM 500 MG in SODIUM CHLORIDE 0.9% 50 ML IV ONE (23:30)
[2020-01-23] MEDS ORDERED: CEFTRIAXONE 1 G PREMIX 50 ML IV ONE
[2020-01-23] MEDS ORDERED: TOPUD PO (06:29)
[2020-01-23] MEDS ORDERED: ACETAMINOPHEN 325MG TABLET PO PRN (06:45)
[2020-01-23] MEDS ORDERED: ONDANSETRON HCL 4MG/2ML INJ IV PRN (09:15)
[2020-01-23] MEDS: MULTIVITAMINS,THER W-MINERALS TABLET PO SCH (11:10)
[2020-01-23] MEDS: THIAMINE HCL 100MG TABLET PO SCH (11:10)
[2020-01-23] MEDS: FOLIC ACID 1MG TABLET PO SCH (11:10)
[2020-01-23] MEDS ORDERED: LORAZEPAM 2MG/ML CPJ IV PRN (11:15)
[2020-01-23 11:36] VITALS: BP 100/60
[2020-01-23] MEDS: ENOXAPARIN 40MG/0.4ML SYR SUBCUT SCH (11:51)
[2020-01-23 11:54] VITALS: BP 106/54
[2020-01-23 16:30] VITALS: BP 102/54
[2020-01-23 20:00] VITALS: BP 94/57
[2020-01-23] MEDS: PHENYTOIN SODIUM EXTENDED 100MG CAPSULE PO SCH (22:33)
[2020-01-23] MEDS: CEFTRIAXONE 1 G PREMIX 50 ML IV SCH (22:33)
[2020-01-24] VITALS: BP 90/55
[2020-01-24 04:00] VITALS: BP 91/50
[2020-01-24 08:00] VITALS: BP 115/74
[2020-01-24] MEDS: ENOXAPARIN 40MG/0.4ML SYR SUBCUT SCH (09:43)
[2020-01-24] MEDS: THIAMINE HCL 100MG TABLET PO SCH (09:43)
[2020-01-24] MEDS: FOLIC ACID 1MG TABLET PO SCH (09:44)
[2020-01-24] MEDS: MULTIVITAMINS,THER W-MINERALS TABLET PO SCH (09:44)
[2020-01-24] MEDS ORDERED: HALOPERIDOL LACTATE 5MG/ML VIAL IM SCH (11:00)
[2020-01-24] MEDS ORDERED: HALOPERIDOL LACTATE 5MG/ML VIAL IM PRN (11:00)
[2020-01-24 12:00] VITALS: BP 101/72
[2020-01-24 20:00] VITALS: BP 120/70
[2020-01-24] MEDS: CEFTRIAXONE 1 G PREMIX 50 ML IV SCH (21:44)
[2020-01-24] MEDS: PHENYTOIN SODIUM EXTENDED 100MG CAPSULE PO SCH (21:45)
[2020-01-25 04:00] VITALS: BP 96/59
[2020-01-25] MEDS: MULTIVITAMINS,THER W-MINERALS TABLET PO SCH (09:48)
[2020-01-25] MEDS: FOLIC ACID 1MG TABLET PO SCH (09:48)
[2020-01-25] MEDS: THIAMINE HCL 100MG TABLET PO SCH (09:48)
[2020-01-25] MEDS: ENOXAPARIN 40MG/0.4ML SYR SUBCUT SCH (09:49)
[2020-01-25 12:00] VITALS: BP 102/66
[2020-01-25 16:00] VITALS: BP 113/68
[2020-01-25 20:00] VITALS: BP 153/54
[2020-01-25] MEDS: PHENYTOIN SODIUM EXTENDED 100MG CAPSULE PO SCH (20:48)
[2020-01-25] MEDS: CEFTRIAXONE 1 G PREMIX 50 ML IV SCH (23:00)
[2020-01-26] VITALS: BP 134/58
[2020-01-26 02:15] VITALS: BP 99/66
[2020-01-26 04:00] VITALS: BP 99/66
[2020-01-26 08:00] VITALS: BP 93/56
[2020-01-26] MEDS: ENOXAPARIN 40MG/0.4ML SYR SUBCUT SCH (08:26)
[2020-01-26] MEDS: MULTIVITAMINS,THER W-MINERALS TABLET PO SCH (08:26)
[2020-01-26] MEDS: FOLIC ACID 1MG TABLET PO SCH (08:26)
[2020-01-26] MEDS: THIAMINE HCL 100MG TABLET PO SCH (08:26)
[2020-01-26 10:36] VITALS: BP 93/56
== END 2020-01-26 11:30 | disposition home or self-care (01) | DRG 720 ==
LOC: ER 19:24 → 6WST 01-23 03:05 → ENRESERV 01-23 03:29 → 7WST 01-23 09:02 → 6EST 01-26 02:20
PROVIDERS: ADMIT Internal Medicine; ATTEND Internal Medicine
DX: A41.9 Sepsis, unspecified organism (principal); E87.8 Other disorders of electrolyte and fluid balance, not elsewhere classified; E44.0 Moderate protein-calorie malnutrition; G31.2 Degeneration of nervous system due to alcohol; E87.1 Hypo-osmolality and hyponatremia; G40.909 Epilepsy, unspecified, not intractable, without status epilepticus; N39.0 Urinary tract infection, site not specified; D64.9 Anemia, unspecified; F17.210 Nicotine dependence, cigarettes, uncomplicated; Z20.828 Contact with and (suspected) exposure to other viral communicable diseases; F10.229 Alcohol dependence with intoxication, unspecified; Y90.0 Blood alcohol level of less than 20 mg/100 ml; Z79.1 Long term (current) use of non-steroidal anti-inflammatories (NSAID); Z79.899 Other long term (current) drug therapy; Z68.27 Body mass index [BMI] 27.0-27.9, adult; Z59.0 Homelessness; Z71.6 Tobacco abuse counseling; Z71.41 Alcohol abuse counseling and surveillance of alcoholic
CPT/HCPCS: 36415; 71045; 80053; 80185; 80305; 80320; 81003; 82140; 85025; 87635; 87804; 93005; 99285; J0696; J1165; J1630; J1650; G0480

== ENCOUNTER 2020-02-06 20:00 | Emergency (ER) | payer OTHER ==
[~2020-02-06] VITALS: Ht 177.8 cm; Wt 190.0 kg
[~2020-02-06 20:00] MED LIST changes: +TOPUD PO
[2020-02-06 22:50] LABS: BASOPHILS % 0.2 % (0.0-2.0); EOSINOPHILS % 1.7 % (0.0-5.0); HEMATOCRIT. 36.9 % (42.0-52.0); LYMPHOCYTES % 58.5 % (20.0-50.0); MEAN CORPUSCULAR HEMOGLOBIN 35.4 pg (28.0-32.0); MEAN CORPUSCULAR VOLUME 100.2 fL (80.0-94.0); MEAN PLATELET VOLUME 7.5 fl (7.4-10.4); MONOCYTES % 4.7 % (2.0-8.0); NEUTROPHILS % 34.9 % (40.0-76.0); PLATELET 301 x1000/uL (130-400); RED BLOOD CELL COUNT 3.69 mill/uL (4.7-6.1); RED CELL DISTRIBUTION WIDTH 13.9 % (11.6-14.6)
[2020-02-06 22:54] LABS: CHLORIDE 103 mEq/L (98-107)
[2020-02-06 22:58] LABS: *AMPHETAMINES SCREEN URINE NEGATIVE (NEGATIVE)
[2020-02-06 22:58] LABS: ETHANOL BLOOD 178 mg/dL
[2020-02-06 22:59] LABS: *BARBITURATES SCREEN URINE NEGATIVE (NEGATIVE); *BENZODIAZEPINES SCREEN URINE NEGATIVE (NEGATIVE); *COCAINE SCREEN URINE NEGATIVE (NEGATIVE); METHADONE URINE SCREEN NEGATIVE (NEGATIVE); OPIATES URINE SCREEN NEGATIVE (NEGATIVE)
[2020-02-06 23:00] LABS: CANNABINOID URINE SCREEN NEGATIVE (NEGATIVE); PHENCYCLIDINE URINE SCREEN NEGATIVE (NEGATIVE)
[2020-02-07 06:12] VITALS: BP 127/62
== END 2020-02-07 06:13 | disposition home or self-care (01) ==
LOC: ER 20:00
DX: F10.129 Alcohol abuse with intoxication, unspecified (principal); Y90.6 Blood alcohol level of 120-199 mg/100 ml; Z79.899 Other long term (current) drug therapy
CPT/HCPCS: 36415; 80053; 80305; 80320; 84484; 85025; 93005; 99285; G0480

== ENCOUNTER 2020-02-14 12:24 | Emergency (ER) | payer OTHER ==
[~2020-02-14] VITALS: Ht 195.6 cm; Wt 95.0 kg
[2020-02-14] MEDS ORDERED: ACETAMINOPHEN 325MG TABLET PO ONE (12:45)
[2020-02-14] MEDS ORDERED: IBUPROFEN 600MG TABLET PO ONE (12:45)
[2020-02-14 17:52] VITALS: BP 110/78
== END 2020-02-14 17:53 | disposition home or self-care (01) ==
LOC: ER 12:24
DX: S32.059A Unspecified fracture of fifth lumbar vertebra, initial encounter for closed fracture (principal); G89.29 Other chronic pain; M54.5 Low back pain; F10.20 Alcohol dependence, uncomplicated; Z79.899 Other long term (current) drug therapy; Y90.9 Presence of alcohol in blood, level not specified; W18.39XA Other fall on same level, initial encounter; Y93.89 Activity, other specified; Y92.89 Other specified places as the place of occurrence of the external cause; Y99.8 Other external cause status
CPT/HCPCS: 72070; 72100; 72128; 99284

== ENCOUNTER 2020-04-15 21:21 | Emergency (ER) | payer OTHER ==
[~2020-04-15] VITALS: Ht 195.6 cm; Wt 93.0 kg
[2020-04-15 23:08] LABS: EOSINOPHILS % 1.1 % (0.0-5.0); HEMATOCRIT. 41.6 % (42.0-52.0); HEMOGLOBIN. 14.6 g/dL (14.0-18.0); LYMPHOCYTES % 52.2 % (20.0-50.0); MEAN CORPUSCULAR HEMOGLOBIN 36.6 pg (28.0-32.0); MEAN CORPUSCULAR VOLUME 104.3 fL (80.0-94.0); MEAN PLATELET VOLUME 7.7 fl (7.4-10.4); MONOCYTES % 7.8 % (2.0-8.0); NEUTROPHILS % 37.9 % (40.0-76.0); PLATELET 246 x1000/uL (130-400); RED BLOOD CELL COUNT 3.98 mill/uL (4.7-6.1)
[2020-04-15 23:15] LABS: CHLORIDE 99 mEq/L (98-107)
[2020-04-15 23:19] LABS: ETHANOL BLOOD 279 mg/dL
[2020-04-16] MEDS ORDERED: ONDANSETRON HCL 4MG/2ML INJ IM NR (02:00)
[2020-04-16 02:05] LABS: *AMPHETAMINES SCREEN URINE NEGATIVE (NEGATIVE); *BARBITURATES SCREEN URINE NEGATIVE (NEGATIVE); *BENZODIAZEPINES SCREEN URINE NEGATIVE (NEGATIVE); *COCAINE SCREEN URINE NEGATIVE (NEGATIVE)
[2020-04-16 02:06] LABS: CANNABINOID URINE SCREEN NEGATIVE (NEGATIVE); METHADONE URINE SCREEN NEGATIVE (NEGATIVE); OPIATES URINE SCREEN NEGATIVE (NEGATIVE); PHENCYCLIDINE URINE SCREEN NEGATIVE (NEGATIVE)
[2020-04-16 06:57] VITALS: BP 117/74
== END 2020-04-16 07:16 | disposition home or self-care (01) ==
LOC: ER 21:21
DX: F10.229 Alcohol dependence with intoxication, unspecified (principal); Y90.8 Blood alcohol level of 240 mg/100 ml or more; G40.909 Epilepsy, unspecified, not intractable, without status epilepticus
CPT/HCPCS: 36415; 71045; 80053; 80305; 80320; 83880; 84484; 85025; 93005; 96372; 99285; J2405; G0480

== ENCOUNTER 2020-04-18 18:49 | Emergency (ER) | payer OTHER ==
[~2020-04-18] VITALS: Ht 177.8 cm; Wt 100.0 kg
[2020-04-18] MEDS ORDERED: HYDROCODONE/ACETAMINOPHEN 5/325MG TABLET PO STA (22:50)
[2020-04-18] MEDS ORDERED: PHENYTOIN SODIUM 1,000 MG in SODIUM CHLORIDE 0.9% 100 ML IV ONE (23:00)
[2020-04-19] MEDS ORDERED: PHENYTOIN SODIUM EXTENDED 100MG CAPSULE PO ONE (01:00)
[2020-04-19 04:13] VITALS: BP 114/66
== END 2020-04-19 04:16 | disposition home or self-care (01) ==
LOC: ER 18:52
DX: R56.9 Unspecified convulsions (principal); R55 Syncope and collapse; Z79.899 Other long term (current) drug therapy
CPT/HCPCS: 99285; J1165; J7050

== ENCOUNTER 2020-06-04 18:34 | Emergency (ER) | payer OTHER ==
[~2020-06-04] VITALS: Ht 172.7 cm; Wt 65.0 kg
[2020-06-04 18:40] VITALS: BP 98/75
[2020-06-04 21:41] LABS: CHLORIDE 103 mEq/L (98-107)
[2020-06-04] MEDS ORDERED: PHENYTOIN SODIUM EXTENDED 100MG CAPSULE PO ONE (23:00)
[2020-06-05 00:21] LABS: BASOPHILS % 0.6 % (0.0-2.0); EOSINOPHILS % 1.5 % (0.0-5.0); HEMATOCRIT. 39.9 % (42.0-52.0); HEMOGLOBIN. 13.6 g/dL (14.0-18.0); LYMPHOCYTES % 35.6 % (20.0-50.0); MEAN CORPUSCULAR HEMOGLOBIN 35.6 pg (28.0-32.0); MEAN CORPUSCULAR VOLUME 104.5 fL (80.0-94.0); MEAN PLATELET VOLUME 8.4 fl (7.4-10.4); MONOCYTES % 10.2 % (2.0-8.0); NEUTROPHILS % 52.1 % (40.0-76.0); PLATELET 199 x1000/uL (130-400); RED BLOOD CELL COUNT 3.82 mill/uL (4.7-6.1); RED CELL DISTRIBUTION WIDTH 13.1 % (11.6-14.6)
== END 2020-06-05 00:17 | disposition home or self-care (01) ==
LOC: ER 18:37
DX: S50.02XA Contusion of left elbow, initial encounter (principal); G40.909 Epilepsy, unspecified, not intractable, without status epilepticus; W18.39XA Other fall on same level, initial encounter; Y93.89 Activity, other specified; Y92.89 Other specified places as the place of occurrence of the external cause; Y99.8 Other external cause status; Z87.891 Personal history of nicotine dependence; F10.229 Alcohol dependence with intoxication, unspecified; Y90.0 Blood alcohol level of less than 20 mg/100 ml; Z79.899 Other long term (current) drug therapy
CPT/HCPCS: 36415; 73080; 80053; 80185; 85025; 93005; 99285

== ENCOUNTER 2020-06-05 12:03 | Emergency (ER) | payer OTHER ==
[~2020-06-05] VITALS: Ht 170.2 cm; Wt 76.0 kg
[2020-06-05] MEDS ORDERED: IBUPROFEN 400MG TABLET PO ONE (12:30)
[2020-06-05 13:05] VITALS: BP 138/80
== END 2020-06-05 15:23 | disposition home or self-care (01) ==
LOC: ER 12:13
DX: S22.059A Unspecified fracture of T5-T6 vertebra, initial encounter for closed fracture (principal); S22.069A Unspecified fracture of T7-T8 vertebra, initial encounter for closed fracture; M40.204 Unspecified kyphosis, thoracic region; X58.XXXA Exposure to other specified factors, initial encounter; Y93.89 Activity, other specified; Y92.89 Other specified places as the place of occurrence of the external cause; Y99.8 Other external cause status; F10.229 Alcohol dependence with intoxication, unspecified; Z79.899 Other long term (current) drug therapy
CPT/HCPCS: 72070; 99283

== ENCOUNTER 2020-06-12 10:42 | Emergency (ER) | payer OTHER ==
[~2020-06-12] VITALS: Ht 177.8 cm; Wt 74.0 kg
[2020-06-12] MEDS ORDERED: SODIUM CHLORIDE 0.9% 1,000 ML IV ONE (11:22)
[2020-06-12] MEDS ORDERED: LORAZEPAM 2MG/ML CPJ IV ONE (11:30)
[2020-06-12 11:52] LABS: BASOPHILS % 1.2 % (0.0-2.0); EOSINOPHILS % 1.7 % (0.0-5.0); HEMATOCRIT. 37.8 % (42.0-52.0); HEMOGLOBIN. 12.8 g/dL (14.0-18.0); LYMPHOCYTES % 60.6 % (20.0-50.0); MEAN CORPUSCULAR HEMOGLOBIN 35.3 pg (28.0-32.0); MEAN CORPUSCULAR VOLUME 103.9 fL (80.0-94.0); MEAN PLATELET VOLUME 7.9 fl (7.4-10.4); MONOCYTES % 10.3 % (2.0-8.0); NEUTROPHILS % 26.2 % (40.0-76.0); PLATELET 219 x1000/uL (130-400); RED BLOOD CELL COUNT 3.63 mill/uL (4.7-6.1); RED CELL DISTRIBUTION WIDTH 13.4 % (11.6-14.6)
[2020-06-12 11:58] LABS: CHLORIDE 101 mEq/L (98-107)
[2020-06-12 12:02] LABS: ETHANOL BLOOD 80 mg/dL
[2020-06-12 13:00] VITALS: BP 112/65
[2020-06-12] MEDS ORDERED: LEVETIRACETAM 500MG PREMIX 100 ML IV ONE (13:15)
== END 2020-06-12 14:35 | disposition home or self-care (01) ==
LOC: ER 10:42
DX: R56.9 Unspecified convulsions (principal); F10.20 Alcohol dependence, uncomplicated; D72.819 Decreased white blood cell count, unspecified; Z79.899 Other long term (current) drug therapy; Y90.4 Blood alcohol level of 80-99 mg/100 ml
CPT/HCPCS: 36415; 70450; 80053; 80320; 85025; 96361; 96365; 96375; 99284; J1953; J2060; J7030; G0480

== ENCOUNTER 2020-06-25 14:13 | Inpatient (IN) | payer OTHER ==
[~2020-06-25] VITALS: Ht 167.6 cm; Wt 77.1 kg
[2020-06-25] MEDS ORDERED: PIPERACILLIN/TAZ 3.375G PREMIX 50 ML IV ONE (14:30)
[2020-06-25] MEDS ORDERED: SODIUM CHLORIDE 0.9% 1000ML BAG (SEPSIS BOLUS) IV ONE (14:30)
[2020-06-25] MEDS ORDERED: VANCOMYCIN 1 G PREMIX 200 ML IV ONE (14:30)
[2020-06-25 15:34] LABS: CHLORIDE 106 mEq/L (98-107)
[2020-06-25 15:36] LABS: PROTHROMBIN TIME 10.9 sec (9.6-11.0)
[2020-06-25 15:38] LABS: ETHANOL BLOOD < 10 mg/dL; HEMOGLOBIN. 13.7 g/dL (14.0-18.0); MEAN CORPUSCULAR HEMOGLOBIN 34.5 pg (28.0-32.0); MEAN CORPUSCULAR VOLUME 103.2 fL (80.0-94.0); MEAN PLATELET VOLUME 7.9 fl (7.4-10.4); PLATELET 231 x1000/uL (130-400); RED BLOOD CELL COUNT 3.97 mill/uL (4.7-6.1); RED CELL DISTRIBUTION WIDTH 13.4 % (11.6-14.6)
[2020-06-25 16:50] LABS: PLATELET ESTIMATE NORMAL
[2020-06-25 17:59] LABS: CLARITY URINE TURBID (CLEAR); COLOR URINE DARK YELLOW (YELLOW); KETONES URINE 1+ (NEGATIVE); LEUKOCYTE ESTERASE URINE 3+ (NEGATIVE); NITRITE URINE POSITIVE (NEGATIVE); OCCULT BLOOD URINE 1+ (NEGATIVE); PROTEIN URINE 2+ (NEGATIVE); SPECIFIC GRAVITY URINE 1.031 (1.005-1.030)
[2020-06-25 18:15] LABS: *AMPHETAMINES SCREEN URINE NEGATIVE (NEGATIVE); *BARBITURATES SCREEN URINE NEGATIVE (NEGATIVE); *BENZODIAZEPINES SCREEN URINE NEGATIVE (NEGATIVE); *COCAINE SCREEN URINE NEGATIVE (NEGATIVE); CANNABINOID URINE SCREEN NEGATIVE (NEGATIVE); METHADONE URINE SCREEN NEGATIVE (NEGATIVE); OPIATES URINE SCREEN NEGATIVE (NEGATIVE); PHENCYCLIDINE URINE SCREEN NEGATIVE (NEGATIVE)
[2020-06-25] MEDS ORDERED: IPRATROPIUM/ALBUTEROL 0.5-3(2.5)MG/3ML NEB NEB PRN (21:45)
[2020-06-25] MEDS ORDERED: NA PHOS,M-B/NA PHOS,DI-BA ENEMA 118ML PR PRN (21:45)
[2020-06-25] MEDS ORDERED: MAGNESIUM/ALUMINUM HYDROXIDE/SIMETHICONE 30ML UDC PO PRN (21:45)
[2020-06-25] MEDS ORDERED: ACETAMINOPHEN 325MG TABLET PO PRN (21:45)
[2020-06-25] MEDS ORDERED: DIPHENHYDRAMINE 50MG/ML VIAL IV PRN (21:45)
[2020-06-25] MEDS ORDERED: LORAZEPAM 2MG/ML CPJ IV PRN (21:45)
[2020-06-25] MEDS ORDERED: GUAIFENESIN 200MG/10ML SUGAR FREE UDC PO PRN (21:45)
[2020-06-25] MEDS ORDERED: CLONIDINE 0.1MG TABLET PO PRN (21:45)
[2020-06-25] MEDS ORDERED: ONDANSETRON HCL 4MG/2ML INJ IV PRN (21:45)
[2020-06-25 21:57] VITALS: BP 97/65
[2020-06-25 22:00] VITALS: BP 102/66
[2020-06-25] MEDS: MORPHINE SULFATE 2 MG/ML CPJ (NOT FOR IM USE) IV PRN (22:14)
[2020-06-25 22:49] VITALS: BP 102/66
[2020-06-25] MEDS ORDERED: AZITHROMYCIN 500 MG in DEXT 5% WATER 250 ML IV SCH (23:00)
[2020-06-25] MEDS ORDERED: PHEN15TA18 PO (23:13)
[2020-06-25] MEDS ORDERED: NAPR-677 PO (23:13)
[2020-06-25] MEDS: DEXT 5%/0.45% NACL 1000ML 1,000 ML IV SCH (23:15)
[2020-06-25 23:38] LABS: CHLORIDE 105 mEq/L (98-107)
[2020-06-26] VITALS (44 sets, daily range): BP systolic 67–111; BP diastolic 17–73
[2020-06-26] MEDS ORDERED: SODIUM CHLORIDE 0.9% 1,000 ML IV SCH ×2 (07:30→12:00)
[2020-06-26] MEDS: DEXT 5%/0.45% NACL 1000ML 1,000 ML IV SCH ×2 (08:00→17:23)
[2020-06-26] MEDS: ASPIRIN 81MG EC TABLET PO SCH (08:52)
[2020-06-26 08:54] LABS: HEMATOCRIT. 31.9 % (42.0-52.0); HEMOGLOBIN. 10.8 g/dL (14.0-18.0); MEAN CORPUSCULAR HEMOGLOBIN 34.7 pg (28.0-32.0); MEAN CORPUSCULAR VOLUME 102.2 fL (80.0-94.0); MEAN PLATELET VOLUME 8.1 fl (7.4-10.4); PLATELET 198 x1000/uL (130-400); RED BLOOD CELL COUNT 3.12 mill/uL (4.7-6.1); RED CELL DISTRIBUTION WIDTH 13.3 % (11.6-14.6)
[2020-06-26] MEDS: ENOXAPARIN 40MG/0.4ML SYR SUBCUT SCH (08:54)
[2020-06-26 09:04] LABS: CHLORIDE 103 mEq/L (98-107)
[2020-06-26 09:15] LABS: LDL CHOLESTEROL 70 mg/dL (5-100)
[2020-06-26 09:16] LABS: HDL CHOLESTEROL 48 mg/dL (40-59); T4 FREE 0.87 ng/dL (0.76-1.46)
[2020-06-26 11:25] LABS: PLATELET ESTIMATE NORMAL
[2020-06-26] MEDS: MULTIVITAMINS,THER W-MINERALS TABLET PO SCH (12:16)
[2020-06-26] MEDS: THIAMINE HCL 100MG TABLET PO SCH (12:16)
[2020-06-26] MEDS: FOLIC ACID 1MG TABLET PO SCH (12:16)
[2020-06-26] MEDS ORDERED: NOREPINEPHRINE 8 MG in DEXT 5% WATER 242 ML IV SCH (13:00)
[2020-06-26] MEDS: CEFTRIAXONE 1,000 MG in DEXTROSE 5% WATER 50 ML IV SCH (14:15)
[2020-06-26] MEDS: HYDROCODONE/ACETAMINOPHEN 5/325MG TABLET PO PRN (14:15)
[2020-06-26] MEDS: LEVETIRACETAM 500MG/5ML CUP PO SCH (21:32)
[2020-06-26] MEDS: AZITHROMYCIN 500 MG in DEXT 5% WATER 250 ML IV SCH (22:06)
[2020-06-27] VITALS (52 sets, daily range): BP systolic 80–140; BP diastolic 44–84
[2020-06-27] MEDS: DEXT 5%/0.45% NACL 1000ML 1,000 ML IV SCH ×2 (04:30→14:46)
[2020-06-27] MEDS: CEFTRIAXONE 1,000 MG in DEXTROSE 5% WATER 50 ML IV SCH (09:00)
[2020-06-27] MEDS: ENOXAPARIN 40MG/0.4ML SYR SUBCUT SCH (09:00)
[2020-06-27 09:17] LABS: BASOPHILS % 0.2 % (0.0-2.0); EOSINOPHILS % 0.7 % (0.0-5.0); HEMATOCRIT. 30.5 % (42.0-52.0); HEMOGLOBIN. 10.4 g/dL (14.0-18.0); LYMPHOCYTES % 9.7 % (20.0-50.0); MEAN CORPUSCULAR HEMOGLOBIN 34.8 pg (28.0-32.0); MEAN CORPUSCULAR VOLUME 102.1 fL (80.0-94.0); MEAN PLATELET VOLUME 8.3 fl (7.4-10.4); MONOCYTES % 5.6 % (2.0-8.0); NEUTROPHILS % 83.8 % (40.0-76.0); PLATELET 181 x1000/uL (130-400); RED BLOOD CELL COUNT 2.98 mill/uL (4.7-6.1); RED CELL DISTRIBUTION WIDTH 13.4 % (11.6-14.6)
[2020-06-27 09:20] LABS: CHLORIDE 106 mEq/L (98-107)
[2020-06-27 09:27] LABS: CREATINE KINASE 48 IU/L (39-308)
[2020-06-27] MEDS: ASPIRIN 81MG EC TABLET PO SCH (09:28)
[2020-06-27] MEDS: FOLIC ACID 1MG TABLET PO SCH (09:28)
[2020-06-27 09:29] LABS: CREATINE KINASE MB FRACTION < 1.0 ng/mL (0.5-3.6)
[2020-06-27] MEDS: MULTIVITAMINS,THER W-MINERALS TABLET PO SCH (09:29)
[2020-06-27] MEDS: LEVETIRACETAM 500MG/5ML CUP PO SCH ×2 (09:29→21:56)
[2020-06-27] MEDS: THIAMINE HCL 100MG TABLET PO SCH (09:30)
[2020-06-27] MEDS: DOCUSATE SODIUM 100MG CAPSULE PO PRN (09:30)
[2020-06-27] MEDS: HYDROCODONE/ACETAMINOPHEN 5/325MG TABLET PO PRN ×3 (09:32→22:06)
[2020-06-27] MEDS: MORPHINE SULFATE 2 MG/ML CPJ (NOT FOR IM USE) IV PRN (10:40)
[2020-06-27] MEDS: AZITHROMYCIN 500 MG in DEXT 5% WATER 250 ML IV SCH (22:10)
[2020-06-28] VITALS (39 sets, daily range): BP systolic 76–167; BP diastolic 23–103
[2020-06-28 07:39] LABS: CHLORIDE 106 mEq/L (98-107)
[2020-06-28] MEDS: CEFTRIAXONE 1,000 MG in DEXTROSE 5% WATER 50 ML IV SCH (07:40)
[2020-06-28] MEDS: LEVETIRACETAM 500MG/5ML CUP PO SCH ×2 (07:41→21:07)
[2020-06-28] MEDS: THIAMINE HCL 100MG TABLET PO SCH (07:41)
[2020-06-28] MEDS: DOCUSATE SODIUM 100MG CAPSULE PO PRN (07:42)
[2020-06-28] MEDS: FOLIC ACID 1MG TABLET PO SCH (07:42)
[2020-06-28] MEDS: ASPIRIN 81MG EC TABLET PO SCH (07:42)
[2020-06-28] MEDS: MULTIVITAMINS,THER W-MINERALS TABLET PO SCH (07:42)
[2020-06-28] MEDS: HYDROCODONE/ACETAMINOPHEN 5/325MG TABLET PO PRN (07:45)
[2020-06-28 07:48] LABS: BASOPHILS % 0.6 % (0.0-2.0); EOSINOPHILS % 1.2 % (0.0-5.0); HEMATOCRIT. 29.8 % (42.0-52.0); HEMOGLOBIN. 10.3 g/dL (14.0-18.0); LYMPHOCYTES % 15.2 % (20.0-50.0); MEAN CORPUSCULAR HEMOGLOBIN 35.3 pg (28.0-32.0); MEAN CORPUSCULAR VOLUME 102.3 fL (80.0-94.0); MEAN PLATELET VOLUME 8.8 fl (7.4-10.4); MONOCYTES % 6.1 % (2.0-8.0); NEUTROPHILS % 76.9 % (40.0-76.0); PLATELET 180 x1000/uL (130-400); RED BLOOD CELL COUNT 2.92 mill/uL (4.7-6.1); RED CELL DISTRIBUTION WIDTH 13.5 % (11.6-14.6)
[2020-06-28] MEDS: ENOXAPARIN 40MG/0.4ML SYR SUBCUT SCH (08:54)
[2020-06-28] MEDS: DEXT 5%/0.45% NACL 1000ML 1,000 ML IV SCH ×3 (08:54→21:08)
[2020-06-28] MEDS: MUPIROCIN 2% OINT 22GM NS SCH ×2 (16:04→21:07)
[2020-06-28] MEDS: AZITHROMYCIN 500 MG TABLET PO SCH (21:07)
[2020-06-28] MEDS: NITROFURANTOIN 100MG M/M CAPSULE PO SCH (21:07)
[2020-06-29 00:04] VITALS: BP 125/77
[2020-06-29 04:00] VITALS: BP_SYST 123; BP_SYST 124; BP_DIAS 64; BP_DIAS 74
[2020-06-29] MEDS: DEXT 5%/0.45% NACL 1000ML 1,000 ML IV SCH ×2 (05:13→16:00)
[2020-06-29] MEDS: MORPHINE SULFATE 2 MG/ML CPJ (NOT FOR IM USE) IV PRN ×2 (06:56→21:37)
[2020-06-29 08:00] VITALS: BP 129/75
[2020-06-29] MEDS: NITROFURANTOIN 100MG M/M CAPSULE PO SCH ×2 (08:18→21:35)
[2020-06-29] MEDS: ASPIRIN 81MG EC TABLET PO SCH (08:18)
[2020-06-29] MEDS: ENOXAPARIN 40MG/0.4ML SYR SUBCUT SCH (08:18)
[2020-06-29] MEDS: MULTIVITAMINS,THER W-MINERALS TABLET PO SCH (08:18)
[2020-06-29] MEDS: FOLIC ACID 1MG TABLET PO SCH (08:18)
[2020-06-29] MEDS: MUPIROCIN 2% OINT 22GM NS SCH ×2 (08:18→21:36)
[2020-06-29] MEDS: THIAMINE HCL 100MG TABLET PO SCH (08:20)
[2020-06-29] MEDS: LEVETIRACETAM 500MG/5ML CUP PO SCH ×2 (08:25→21:36)
[2020-06-29 12:00] VITALS: BP 121/65
[2020-06-29 16:00] VITALS: BP 119/76
[2020-06-29] MEDS: HYDROCODONE/ACETAMINOPHEN 5/325MG TABLET PO PRN (17:34)
[2020-06-29 20:00] VITALS: BP 127/76
[2020-06-29] MEDS: AZITHROMYCIN 500 MG TABLET PO SCH (21:35)
[2020-06-30] MEDS: DEXT 5%/0.45% NACL 1000ML 1,000 ML IV SCH ×2 (01:04→11:57)
[2020-06-30 04:00] VITALS: BP 115/71
[2020-06-30 06:24] LABS: BASOPHILS % 0.9 % (0.0-2.0); EOSINOPHILS % 2.7 % (0.0-5.0); LYMPHOCYTES % 33.6 % (20.0-50.0); MEAN CORPUSCULAR HEMOGLOBIN 34.6 pg (28.0-32.0); MEAN CORPUSCULAR VOLUME 101.6 fL (80.0-94.0); MEAN PLATELET VOLUME 8.9 fl (7.4-10.4); MONOCYTES % 12.9 % (2.0-8.0); NEUTROPHILS % 49.9 % (40.0-76.0); PLATELET 198 x1000/uL (130-400); RED BLOOD CELL COUNT 3.58 mill/uL (4.7-6.1); RED CELL DISTRIBUTION WIDTH 13.2 % (11.6-14.6)
[2020-06-30 06:43] LABS: HEMATOCRIT. 36.4 % (42.0-52.0); HEMOGLOBIN. 12.4 g/dL (14.0-18.0)
[2020-06-30 06:45] LABS: CHLORIDE 104 mEq/L (98-107)
[2020-06-30 08:00] VITALS: BP 117/73
[2020-06-30] MEDS: NITROFURANTOIN 100MG M/M CAPSULE PO SCH (09:00)
[2020-06-30] MEDS: MULTIVITAMINS,THER W-MINERALS TABLET PO SCH (09:00)
[2020-06-30] MEDS: FOLIC ACID 1MG TABLET PO SCH (09:28)
[2020-06-30] MEDS: LEVETIRACETAM 500MG/5ML CUP PO SCH (09:28)
[2020-06-30] MEDS: THIAMINE HCL 100MG TABLET PO SCH (09:28)
[2020-06-30] MEDS: ASPIRIN 81MG EC TABLET PO SCH (09:29)
[2020-06-30] MEDS: ENOXAPARIN 40MG/0.4ML SYR SUBCUT SCH (09:29)
[2020-06-30] MEDS: HYDROCODONE/ACETAMINOPHEN 5/325MG TABLET PO PRN (09:49)
[2020-06-30] MEDS: MUPIROCIN 2% OINT 22GM NS SCH (10:09)
[2020-06-30 12:00] VITALS: BP 122/68
[2020-06-30 16:00] VITALS: BP 118/64
== END 2020-06-30 18:30 | disposition home or self-care (01) | DRG 720 ==
LOC: ER 14:24 → 5WST 17:46 → EDBEDREQSVC 17:48 → EDBEDREQ 17:48 → EDBEDREQTM 17:48 → ENRESERV 20:00 → CVICU 06-26 11:50 → 8WST 06-28 12:50
PROVIDERS: ADMIT Internal Medicine; ATTEND Internal Medicine
PROC: 4A00X4Z Measurement of Central Nervous Electrical Activity, External Approach (ICD-10-PCS; principal; 2020-06-29)
DX: A41.9 Sepsis, unspecified organism (principal); N39.0 Urinary tract infection, site not specified; I10 Essential (primary) hypertension; G40.909 Epilepsy, unspecified, not intractable, without status epilepticus; F10.229 Alcohol dependence with intoxication, unspecified; E86.0 Dehydration; E46 Unspecified protein-calorie malnutrition; R65.21 Severe sepsis with septic shock; B96.20 Unspecified Escherichia coli [E. coli] as the cause of diseases classified elsewhere; F17.210 Nicotine dependence, cigarettes, uncomplicated; R62.7 Adult failure to thrive; G90.8 Other disorders of autonomic nervous system; Z16.29 Resistance to other single specified antibiotic; Z68.27 Body mass index [BMI] 27.0-27.9, adult; Z82.49 Family history of ischemic heart disease and other diseases of the circulatory system; Z91.81 History of falling
CPT/HCPCS: 36415; 71045; 73030; 80048; 80053; 80061; 80305; 80320; 81003; 82550; 82553; 83605; 83735; 84145; 84439; 84443; 84484; 85025; 86850; 86900; 87077; 87186; 93005; 93306; 95816; 96365; 97162; 99291; J0456; J0696; J1650; J2270; J2405; J2543; J3370; J3490; J7030; J7060; G0480

== ENCOUNTER 2020-08-05 20:37 | Emergency (ER) | payer OTHER ==
[~2020-08-05] VITALS: Ht 185.4 cm; Wt 82.0 kg
[~2020-08-05 20:37] MED LIST changes: +NAPR-677 PO; +PHEN15TA18 PO; -TOPUD PO
[2020-08-06 03:56] VITALS: BP 125/79
== END 2020-08-06 07:13 | disposition home or self-care (01) ==
LOC: ER 20:37
DX: F10.129 Alcohol abuse with intoxication, unspecified (principal); Y90.9 Presence of alcohol in blood, level not specified; F91.8 Other conduct disorders; G40.909 Epilepsy, unspecified, not intractable, without status epilepticus; Z79.899 Other long term (current) drug therapy
CPT/HCPCS: 99283

== ENCOUNTER 2020-08-12 09:34 | Emergency (ER) | payer OTHER ==
[~2020-08-12] VITALS: Ht 195.6 cm; Wt 75.0 kg
[2020-08-12 09:37] VITALS: BP 111/72
== END 2020-08-12 10:35 | disposition home or self-care (01) ==
LOC: ER 09:34
DX: G40.909 Epilepsy, unspecified, not intractable, without status epilepticus (principal); M79.604 Pain in right leg; E11.9 Type 2 diabetes mellitus without complications; Z79.899 Other long term (current) drug therapy
CPT/HCPCS: 99283